=== PATIENT | male | born 1960 | race Caucasian/White ===

== ENCOUNTER 2018-01-27 05:05 | Inpatient (IN) ==
[2018-01-21 14:18] LABS: Blood Urea Nitrogen 15 mg/dl (6-20)
[2018-01-21 14:39] LABS: Basophils # (Auto) 0.1 K/mcL (0.0-0.3); Basophils % (Auto) 0.8 % (0.0-2.0); Eosinophils # (Auto) 0.2 K/mcL (0.0-0.7); Granulocytes % (Auto) 49.6 % (38.0-78.0); Lymphocytes % (Auto) 36.9 % (15.5-49.0); Mean Cell Volume 88.7 fL (80.0-100.0); Monocytes # (Auto) 0.8 K/mcL (0.1-0.9); Monocytes % (Auto) 9.7 % (1.0-12.0); Platelet Count 277 K/mcL (140-440); Red Cell Distribution Width 11.9 % (11.5-14.5)
[2018-01-21 15:14] LABS: Appearance,Urine CLEAR; Bilirubin,Urine NEG (NEG); Color,Urine YELLOW; Glucose,Urine (UA) NEGATIVE (NEG); Leukocyte Esterase,Urine NEG /uL (NEG); Protein,Urine NEG (NEG); Specific Gravity,Urine 1.011 (1.000-1.035); Urine Blood NEG mg/dL (<0.03); Urobilinogen,Urine NEG (NEG)
[~2018-01-27 05:05] MED LIST: CELECOXIB 200 MG CAPSULE PO SCH; PREGABALIN 75 MG CAPSULE PO SCH; ceFAZolin 1 GM VIAL IV SCH; oxyCODONE 10 MG TAB.ER.12H PO SCH
[2018-01-27] MEDS ORDERED: ePHEDrine 50 MG/ML AMPUL IV ONE (07:45)
[2018-01-27] MEDS ORDERED: ONDANSETRON 4 MG/2 ML VIAL IV ONE (07:45)
[2018-01-27] MEDS ORDERED: fentaNYL 250 MCG/5 ML VIAL IV ONE (07:45)
[2018-01-27] MEDS ORDERED: LIDOCAINE HCL/PF 100 MG/5 ML SYRINGE IV ONE (07:45)
[2018-01-27] MEDS ORDERED: DEXAMETHASONE 10 MG/ML VIAL IV ONE (07:45)
[2018-01-27] MEDS ORDERED: TRANEXAMIC ACID 1,000 MG/10 ML VIAL IV ONE ×2 (07:45→09:33)
[2018-01-27] MEDS ORDERED: MIDAZOLAM 5 MG/5 ML VIAL IV ONE (07:45)
[2018-01-27] MEDS ORDERED: SUCCINYLCHOLINE 20 MG/ML ML IV ONE (07:45)
[2018-01-27] MEDS ORDERED: PROPOFOL 200 MG/20 ML VIAL IV ONE (07:45)
[2018-01-27] MEDS ORDERED: LACTATED RINGERS 250 ML IV PRN (09:07)
[2018-01-27] MEDS ORDERED: ONDANSETRON 4 MG/2 ML VIAL IV PRN ×2 (09:07→09:33)
[2018-01-27] MEDS ORDERED: NALOXONE HCL 0.4 MG/ML VIAL IV PRN (09:07)
[2018-01-27] MEDS ORDERED: diphenhydrAMINE 50 MG/ML VIAL IV PRN (09:07)
[2018-01-27] MEDS ORDERED: IPRATROPIUM/ALBUTEROL 3 ML AMPUL.NEB NEB PRN (09:07)
[2018-01-27] MEDS ORDERED: FLUMAZENIL 0.1 MG/ML ML IV PRN (09:07)
[2018-01-27] MEDS ORDERED: ACETAMINOPHEN 1,000 MG/100 ML BOTTLE IV ONE (09:07)
[2018-01-27] MEDS ORDERED: BENZOCAINE/MENTHOL 1 LOZENGE PO PRN ×2 (09:07→09:33)
[2018-01-27] MEDS ORDERED: KETOROLAC 15 MG/ML VIAL IV PRN (09:07)
[2018-01-27] MEDS ORDERED: MEPERIDINE 25 MG/ML SYRINGE IV PRN (09:07)
[2018-01-27] MEDS ORDERED: PROMETHAZINE 25 MG/ML VIAL IV PRN (09:07)
[2018-01-27] MEDS ORDERED: LACTATED RINGERS 1,000 ML IV SCH (09:15)
[2018-01-27] MEDS ORDERED: DEXTROSE 31 GM ORAL.SUSP PO PRN (09:33)
[2018-01-27] MEDS ORDERED: MAGNESIUM HYDROXIDE 30 ML ORAL.SUSP PO PRN (09:33)
[2018-01-27] MEDS ORDERED: BISACODYL 10 MG SUPP.RECT PR PRN (09:33)
[2018-01-27] MEDS ORDERED: DEXTROSE 50% 50 ML VIAL IV PRN (09:33)
[2018-01-27] MEDS ORDERED: FLEETS ADULT ENEMA PR PRN (09:33)
[2018-01-27] MEDS ORDERED: POLYETHYLENE GLYCOL 3350 17 GM PACKET PO PRN (09:33)
--- NOTE | 2018-01-27 09:33 | Brief Operative Note ---
Date of procedure: 01/27/18 Pre-op diagnosis: Irreparable chronic massive RTC with arthrosis Post-op diagnosis: same Procedure: Right reverse total shoulder arthroplasty Grafts/Implants: Yes (Biomet 15 mini humeral stem, std baseplate/poly, 36 +3 offset glenosphere) Anesthesia: GETA Findings: absent RTC with arthrosis Complications: none Surgeon: Colton Rajput Chronic Disease Manager: Sumeet Garcia Estimated blood loss (cc): 150 Specimens Removed/Pathology: none sent Condition: stable Disposition: PACU
[2018-01-27] MEDS ORDERED: ALBUTEROL SULFATE 1 PUFF INHALER INH PRN (09:37)
[2018-01-27] MEDS ORDERED: BUPIVACAINE W/EPI 0.5% 50 ML VIAL IJ ONE (09:53)
[2018-01-27] MEDS: fentaNYL 100 MCG/2 ML VIAL IV PRN ×3 (10:25→10:32)
--- NOTE | 2018-01-27 10:29 | XRay Report ---
CLINICAL INFORMATION: Reason for Exam:Post-OP Total Shoulder COMPARISON: None. FINDINGS: Total shoulder prostheses is anatomically aligned. No osseous abnormality. Soft tissue swelling seen as expected IMPRESSION: Negative Interpreted and Authenticated by: Ernesto Medina 01/27/18
[2018-01-27] MEDS: HYDROmorphone 2 MG/ML VIAL IV PRN (10:53)
[2018-01-27] MEDS: INSULIN LISPRO 1 UNIT/0.01 ML UNIT SQ SCH ×5 (11:58→20:55)
[2018-01-27] MEDS: 0.9 % SODIUM CHLORIDE 1,000 ML IV SCH ×2 (11:59→20:55)
[2018-01-27] MEDS: HYDROcodone/APAP 10/325MG TABLET PO PRN ×3 (13:15→23:07)
[2018-01-27] MEDS: 0.9 % SODIUM CHLORIDE 10 ML SYRINGE IV SCH ×2 (13:53→20:56)
[2018-01-27] MEDS: ceFAZolin 1 GM VIAL IV SCH ×2 (14:43→23:07)
[2018-01-27] MEDS: metFORMIN 500 MG TABLET PO SCH (17:30)
[2018-01-27] MEDS: DOCUSATE SODIUM 100 MG CAPSULE PO SCH (20:55)
[2018-01-27] MEDS ORDERED: SENNOSIDES 1 TABLET PO SCH (21:00)
[2018-01-27] MEDS ORDERED: INSULIN GLARGINE, HUMAN 1 UNIT/0.01 ML SQ SCH (21:00)
[2018-01-28] MEDS: 0.9 % SODIUM CHLORIDE 1,000 ML IV SCH (04:55)
[2018-01-28] MEDS: 0.9 % SODIUM CHLORIDE 10 ML SYRINGE IV SCH (05:02)
[2018-01-28] MEDS: HYDROcodone/APAP 10/325MG TABLET PO PRN ×2 (05:05→10:03)
[2018-01-28] MEDS: HYDROmorphone 2 MG/ML VIAL IV PRN (06:05)
--- NOTE | 2018-01-28 07:38 | Discharge Summary ---
Providers - Providers Patient information: Note initiated : 01/28/18 at 7:36 am Service Date, if different from initiated Date: [] Patient: Robson Landaverde 57 y/o M admitted on 01/27/18 for Right Reverse Ttoal Shoulder Arthroplasty. Chief Complaint: [] Discharge date: 01/28/18 Hospitalization Hospital course: Pt was admitted for a R Reverse Total Shoulder Arthroplasty. He had suffered from R shoulder pain and failed rotator cuff repair and elected to proceed for improved function and pain releif. He was admitted on the day of the procedure; he was transferred to the floor for IV pain meds, IV abx, and PT. He spent one night on the floor prior to discharge. Will f/u in 10-14 days. Discharge diagnosis: R shoulder rotator cuff arthropathy Exam - Exam Clean and dry: No (mild bloody drainage) Weight bearing status: none Ortho Discharge - TSA - Patient Instructions Diet: Regular Diet Activity: non weight bearing Total Shoulder Protocol: Leave immobilizer in place except for bathing and ROM. Abduction pillow. Continue to wear sling until seen by physician. Codman Pendulum : These exercises use momentum produced by your body to move your shoulder joint. Bend your knees and shift your weight to your front leg, then back, allowing your arm to swing in the same directions. Using the same technique, alternately shift your weight between your right and left legs, allowing your arm to swing from side to side. These exercises are also performed in counterclockwise and clockwise circular motions. Typically these exercises are performed several times per day, for a set number repetitions or minutes, such as 20 times in a row or 5 minutes at a time. Dressing Care: May shower in 2 days - Follow Up Plan Disposition: Home, Self-Care Prognosis: Good Rehab Potential: Good Overall status at discharge: patient is progressing back to baseline - Orders For Discharge Prescriptions: HYDROcodone/APAP 10/325MG [[place] 10-325Mg] 1 - 2 tab PO Q4HP PRN #80 tab PRN Reason: Pain Level 3-6 Pending Studies Resuscitation Status Full Code Diet Consistent Carbohydrate Diet Start ThuJan 27 935 Hydrocodone Bitart/Acetaminophen ([place] 10/325mg) 0 tab PO Q4HP PRN PRN Reason: PAIN LEVEL 3-6 Last Admin: 01/28/18 05:05 Dose: 2 tab Admin: 01/27/18 23:07 Dose: 2 tab Admin: 01/27/18 18:53 Dose: 2 tab Admin: 01/27/18 13:15 Dose: 2 tab Diagnostic Test (Pha) (Accu-Chek) 1 each FS ACHS [facility] Last Admin: 01/27/18 20:41 Dose: 1 each Admin: 01/27/18 17:29 Dose: 1 each Admin: 01/27/18 11:59 Dose: 1 each Docusate Sodium (Colace) 100 mg PO BID [facility] Last Admin: 01/27/18 20:55 Dose: 100 mg Hydromorphone HCl (Dilaudid) 0 mg IV Q2HP PRN PRN Reason: PAIN LEVEL > 6 Last Admin: 01/28/18 06:05 Dose: 0.5 mg Admin: 01/27/18 10:53 Dose: 1 mg Sodium Chloride (Sodium Chloride 0.9%) 1,000 mls @ 100 mls/hr IV .Q10H [facility] Last Admin: 01/28/18 04:55 Dose: Infusion: 01/28/18 01:40 Dose: 0 mls/hr Admin: 01/27/18 20:55 Dose: Not Given Admin: 01/27/18 11:59 Dose: 100 mls/hr Insulin Glargine (Lantus) 100 unit SQ HS [facility] Last Admin: 01/27/18 20:56 Dose: 100 unit Insulin Human Lispro (Humalog) 0 unit SQ [facility] PRN Reason: Protocol Last Admin: 01/27/18 20:55 Dose: 8 unit Admin: 01/27/18 17:30 Dose: 12 unit Admin: 01/27/18 11:58 Dose: 8 unit Insulin Human Lispro (Humalog) 30 unit SQ AC [facility] Last Admin: 01/27/18 17:30 Dose: 30 unit Admin: 01/27/18 11:58 Dose: 30 unit Metformin HCl (Glucophage) 1,000 mg PO BIDCC [facility] Last Admin: 01/27/18 17:30 Dose: 1,000 mg Senna (Senokot) 2 tab PO HS [facility] Last Admin: 01/27/18 20:56 Dose: 2 tab Sodium Chloride (Saline Flush) 10 ml IV Q8 [facility] Last Admin: 01/28/18 05:02 Dose: 10 ml Admin: 01/27/18 20:56 Dose: Not Given Admin: 01/27/18 13:53 Dose: Not Given Shift Summary 01/28/18 04:20 Shift Summary by Anabelle Ramos&Yaima4. VSS. 18 gauge to left hand is SL. Dressing in place to surgical site to right shoulder has shadow drainage; shoulder immobilizer in place. Medicated with 2 tablets 10/325mg [place] x2 for pain. Up with SBA. Ambulated in the hallway. BG at HS was 273; received 8 units Humalog per s/s and scheduled Lantus 100 units. Patient stated that he would like to d/c home today. Initialized on 01/28/18 04:20 - END OF NOTE
[2018-01-28] MEDS: INSULIN LISPRO 1 UNIT/0.01 ML UNIT SQ SCH ×2 (08:03)
[2018-01-28] MEDS: DOCUSATE SODIUM 100 MG CAPSULE PO SCH (08:55)
[2018-01-28] MEDS: metFORMIN 500 MG TABLET PO SCH (08:55)
[2018-01-28] MEDS ORDERED: ASPIRIN 81 MG TAB.CHEW PO SCH (09:00)
[2018-01-28] MEDS ORDERED: MAGNESIUM OXIDE 400 MG TABLET PO SCH (09:00)
[2018-01-28] MEDS ORDERED: LISINOPRIL 5 MG TABLET PO SCH (09:00)
--- NOTE | 2018-02-08 10:14 | Operative Note ---
DATE OF OPERATION: 01/27/2018 PREOPERATIVE DIAGNOSIS: Right irreparable chronic massive rotator cuff tear with arthrosis. POSTOPERATIVE DIAGNOSIS: Right irreparable chronic massive rotator cuff tear with arthrosis. PROCEDURE PERFORMED: Right reverse total shoulder arthroplasty using a Biomet size 15 mini humeral stem, a standard baseplate and polyethylene insert with a 36, +3 offset glenosphere. SURGEON: Colton Rajput M.D. NURSE DISCHARGE: Maury Garcia PA-C. ANESTHESIA: General. DRAINS: None. SPECIMENS: None. COMPLICATIONS: None. BLOOD LOSS: 150 mL. POSTOPERATIVE CONDITION: Stable. INDICATIONS FOR SURGERY: This is a 57-year-old male who has had longstanding right shoulder pain and weakness with history of previous rotator cuff repair. MRI showed massive rotator cuff tear that also had substantial atrophy. FINDINGS AT SURGERY: Absent rotator cuff. PROCEDURE IN DETAIL: The patient had been seen preoperatively, and informed consent had been obtained after discussion of risks and benefits of surgery. Risks including, but not limited to, bleeding; infection; injury to nerves, blood vessels, and other surrounding structures; anesthetic risks; incomplete or no resolution of symptoms; stiffness; weakness; pain; dislocation; fracture; possibility of needing revision surgery. He understood these risks and wished to proceed. Correct operative site was marked and patient was taken to the operating room. General anesthesia was induced. He was carefully positioned in beach chair position and pressure points carefully padded. Right shoulder and upper extremity were then carefully prepped and draped in normal sterile fashion, and a time-out was performed verifying patient name, operative site, and plan. Ioban was used to cover all skin surfaces and a standard deltopectoral incision was made with scalpel through skin and subcutaneous tissue. Hemostasis was obtained with Bovie cautery. Irrisept was irrigated and then blunt dissection taken down onto the cephalic vein, and this was dissected lateral to the deltoid. The subdeltoid space was developed bluntly with finger dissection and a Be retractor placed. We went ahead and detached what remained of subscapularis and dislocated the humeral head out anteriorly. A hole was made proximally and then we began sequentially reaming the humeral shaft with hand reamers up to a 15. We then placed our cutting jig with 30 degrees of retroversion and then made our humeral head cut. We then broached up to a size 15 mini stem and then placed a head protector. We then subluxed the humerus posteriorly and began exposing the glenoid, circumferentially removing labrum and releasing capsule. We then drilled our central guide pin. We then reamed for the baseplate until we had reached bone circumferentially. This was with a 10 degree cephalad tilt. We then drilled our central hole and checked the depth gauge and then opened a mini baseplate. The joint was irrigated with Irrisept, after a minute pulse lavage copiously with irrigation, and then impacted the baseplate. We then placed a central screw and got excellent compression. We then drilled and placed our peripheral locking screws. Once this was completed, we then placed a trial head. We then re-exposed the humerus and trialed with a standard baseplate. Shoulder just barely reduced and had good tension, so we redislocated and then removed the trial head component. A +3 offset glenosphere was opened and then impacted. We then irrigated the humeral canal with Irrisept, after a minute pulse lavage, and then the 15 mini stem was impacted. The baseplate, polyethylene insert construct was put together on the back table and then this was impacted on to the stem. The stem was reduced with excellent tension. Range of motion was checked which was full. We then did another Irrisept irrigation, after a minute pulse lavage, and then a #1 Vicryl stitch was used to close the deltopectoral interval. Final Irrisept irrigation done, final pulse lavage after a minute, and then 2-0 Monocryl for subcutaneous and misbah for skin. Xeroform and sterile dressing were applied. Arm was placed in a Donjoy abductor immobilizer and patient was awakened, extubated, and transferred to recovery in stable condition. WON:aminah Job ID: [id number] Doc ID: [id number] Colton Rajput MD
[2018-02-10] MEDS ORDERED: ERGOCALCIFEROL (VITAMIN D2) 50,000 UNIT CAPSULE PO SCH (09:00)
== END 2018-01-28 10:32 | disposition home or self-care (01) | DRG 483 ==
LOC: MEDSUR 05:05
PROVIDERS: ADMIT Orthopaedic Surgery; ATTEND Orthopaedic Surgery

== ENCOUNTER 2020-07-11 14:11 | Inpatient (IN) ==
[2020-07-11] MEDS ORDERED: IOPAMIDOL 100 ML BOTTLE IV ONE (14:12)
[2020-07-11] MEDS ORDERED: 0.9 % SODIUM CHLORIDE 1,000 ML IV ONE (14:26)
[2020-07-11] MEDS ORDERED: VANCOMYCIN 2,000 MG in 0.9 % SODIUM CHLORIDE 500 ML IV ONE (14:32)
--- NOTE | 2020-07-11 14:48 | Emergency Department Note ---
HPI General Chief complaint: Skin/Abscess/Foreign Body Stated complaint: Left foot wound Time Seen by Provider: 07/11/20 14:18 Source: patient and family Mode of arrival: wheelchair Limitations: no limitations History of Present Illness HPI Narrative: Narrative: 59-year old patient presenting to the emergency department with a chief complaint of injury to the left foot. Patient reporting mechanism of injury was stepped on a nail. This issue occurred since 5 to 6 days ago. Exacerbating features are attempting to move it, pressure. Ameliorating factors are immobilization, pain medications. Patient denying symptoms of pain out of proportion to the extremity, pallor to the extremity, other color change, or paresthesias in the extremity. Patient denies injury to other parts of the body at the same time. Patient with known diabetes has been in the past couple of days evaluated for cellulitis and foot infection presenting for further recheck. Patient has been getting IV antibiotics as well as Keflex p.o. Related Data Home Medications Medication Instructions Recorded Confirmed insulin aspart U-100 30 unit SQ TID 01/21/18 07/11/20 insulin detemir U-100 100 unit/mL 50 unit SUB-Q HS ml 08/03/19 07/11/20 subcutaneous solution metformin 500 mg tablet 1,000 mg PO BIDCC 04/05/20 07/11/20 Previous Rx's Medication Instructions Recorded cephalexin [Keflex] 500 mg PO QID #40 cap 07/09/20 Allergies Allergy/AdvReac Type Severity Reaction Status Date / Time No Known Drug Allergies Allergy Verified 07/11/20 14:11 Review of Systems ROS ROS Narrative: Narrative: All systems ED: reviewed and negative except as stated. COUNT INCLUDES THE [facility] Narrative Patient History Narrative: Narrative: Medical/Surgical/Family History All Active Problems (Updated 07/11/20 @ 16:35 by Emery Coates MD) Wound infection (Acute) Penetrating foot wound (Acute) Infected abrasion of left foot (Acute) Cellulitis (Acute) Proteinuria of undiagnosed cause (Chronic) Chronic hyponatremia (Chronic) Type 2 diabetes mellitus with foot ulcer, with long-term current use of insulin (Chronic) Acute prerenal azotemia (Acute) Exposure to 2019 novel coronavirus (Chronic) Low blood pressure (Chronic) Ulcer of foot due to type 2 diabetes mellitus (Chronic) Tinea pedis, right (Chronic) Vitamin D deficiency (Chronic) Astigmatism (Chronic) Anterior cruciate ligament tear (Chronic) Morbid obesity (Chronic) Rotator cuff tear, right (Chronic) Impotence (Chronic) Osteoarthritis of left knee (Chronic) Hyperlipidemia (Chronic) Hallux valgus (Chronic) GERD (gastroesophageal reflux disease) (Chronic) Hemorrhoids (Chronic) Diabetes mellitus, type II (Chronic) Hypertension (Chronic) Acute renal failure (Chronic) Right hallux osteomyelitis (Chronic) Sepsis due to cellulitis (Chronic) Dislocation of shoulder region (Chronic) Chronic diabetic ulcer of right foot determined by examination (Chronic) Hypertension, essential (Chronic) Obesity (BMI 30.0-34.9) (Chronic) Diabetes mellitus type 2, uncontrolled (Chronic) Medical History (Updated 07/11/20 @ 16:35 by Emery Coates MD) Acute prerenal azotemia (Acute) Polyfactorial with low BP/dehydration, NSAID and ACEi use Improved by stopping Lisinopril and reduced NSAID use Low Grade proteinuria persists Acute renal failure (Chronic) Anterior cruciate ligament tear (Chronic) Astigmatism (Chronic) Chronic diabetic ulcer of right foot determined by examination (Chronic) Diabetes mellitus type 2, uncontrolled (Chronic) Diabetes mellitus, type II (Chronic) Dislocation of shoulder region (Resolved) Dislocation of shoulder region (Chronic) Exposure to 2019 novel coronavirus (Chronic) GERD (gastroesophageal reflux disease) (Chronic) Hallux valgus (Chronic) Hemorrhoids (Chronic) Hyperlipidemia (Chronic) Hypertension (Chronic) Hypertension, essential (Chronic) Impotence (Chronic) Low blood pressure (Chronic) Morbid obesity (Chronic) Obesity (BMI 30.0-34.9) (Chronic) Osteoarthritis of left knee (Chronic) Proteinuria of undiagnosed cause (Chronic) The diagnostic possibilities are early diabetic nephropathy however there is no retinopathy on my exam. Could be tubular proteinuria from nonsteroidals, mid he does seem to be able to generate a concentrated urine with a specific gravity of 1.030 as well as a dilute urine of 1.005 which would suggest intact tubular function. Finally could just be something is innocent as orthostatic proteinuria. I would like to stop the thiazide, the GASPER inhibitor, and minimize his Naprosyn use and work this up in a month or so if it has not abated on its own Right hallux osteomyelitis (Chronic) Rotator cuff tear, right (Chronic) Sepsis due to cellulitis (Chronic) FAILED out patient treatment DFU Lentz 4, Right FIRST toe with POLYMICROBIAL, soft tissue necroses and suspected anaerobic infection., WITHOUT signs of SIRS . Will treat aggressively with local wound care and HBOT along with management of comorbid conditions. PLAN DISCUSSED WITH DR. SHAH Infectious Disease Specialist. Further systemic antibiotcs at the behest of ID specialist as the condition evolves. Shoulder dislocation, recurrent (Resolved) Tinea pedis, right (Chronic) Type 2 diabetes mellitus with foot ulcer, with long-term current use of insulin (Chronic) No longer on metformin but I see no reason not to restart. Low grade proteinuria may not be due to early DM but may reflect effects of chronic NSAIDS and non-glomerular protein leak Stop lisinopril for a month and check for glomerular and tubular protein leak. Ulcer of foot due to type 2 diabetes mellitus (Chronic) Vitamin D deficiency (Chronic) Surgical History History of repair of left rotator cuff (Chronic) History of right shoulder replacement (Chronic) Had to be repeated 9 days later; Dr. Desir Family History Mother Diabetes mellitus, type 2 Social History Smoking Status: Former smoker Alcohol Intake Frequency: a few times a week Substance Use: does not use Exam Narrative Narrative: Narrative: General: Alert, interactive, appropriate Head: Atraumatic, normocephalic Eyes: Extraocular movements intact, sclera anicteric, no conjunctival injection Ears: Pinnae normal, no discharge Mouth: Oral mucosa moist, no acute swelling or evidence of infection Nares: No nasal discharge, patent bilaterally Neck: Trachea midline, full range of motion Chest: Symmetrical chest wall rise, breathing normally; nonlabored respirations Cardiovascular: Patient with excellent perfusion to the extremities; without tachycardia/bradycardia Extremities: Full range of motion in other joints, other extremities were warm well perfused, patient with erythema to just above the ankle at this time. Patient with induration diffusely around the foot. Patient open wound to the dorsum of the foot as well as the medial aspect of the great toe at the MCP Neuro: Alert, oriented x3, cranial nerves II through XII grossly intact, patient without lateralizing findings such as weakness, or abnormal reflexes Psychiatric: Normal affect, normal mood General Limitations: no limitations Course Vital Signs Vital signs: Vital Signs Temperature 98.7 F 07/11/20 14:11 Pulse Rate 98 H 07/11/20 14:11 Respiratory Rate 16 07/11/20 14:11 Blood Pressure 144/87 07/11/20 14:11 Pulse Oximetry (%) 97 07/11/20 14:11 Temperature 98.7 F 07/11/20 14:11 Pulse Rate 92 H 07/11/20 16:25 Respiratory Rate 16 07/11/20 14:11 Blood Pressure 179/92 07/11/20 16:25 Pulse Oximetry (%) 96 07/11/20 16:25 MDM MDM Narrative Medical decision making narrative: Narrative: This patient presenting with chief complaint of failed outpatient antibiotics for open wound/cellulitis in a diabetic. Patient has had several days of oral antibiotics as well as IV antibiotics and evaluation as an outpatient by wound management. Patient was evaluated with combination of history/physical exam/radiologic evaluation. Patient is without evidence of acute neurovascular compromise of the extremity. Patient was treated with IV fluids, antibiotics vancomycin 2 g and Zosyn were provided, CBC blood cultures as well as noncontrast CT scan of his lower extremity were obtained. In my medical opinion at this time patient most reasonably should be admitted to the hospital for failed outpatient cellulitis with open wounds. Discussed the case with Dr. Zapien and the consensus medical opinion is to admit. Also discussed case with Dr. Oliveros and he will be evaluating the patient in the hospital with plans for surgery tomorrow. Lab Data Result diagrams: 07/11/20 14:45 07/11/20 14:45 Labs: Lab Results 07/11/20 07/11/20 07/11/20 Range/Units 14:45 14:45 14:57 WBC 16.2 H (4.50-11.00) K/mcL RBC 4.26 L (4.63-6.08) M/mcL Hgb 13.6 L (13.7-17.5) g/dL Hct 39.4 L (40.1-51.0) % MCV 92.5 (80.0-100.0) fL MCH 31.9 (26.0-34.0) pg MCHC 34.5 (31.0-36.0) g/dL RDW 12.7 (11.5-14.5) % Plt Count 286 (140-440) K/mcL MPV 10.0 (7.4-10.4) fL Gran % 75.2 (38.0-78.0) % Lymph % (Auto) 13.6 L (15.5-49.0) % [place] % (Auto) 9.7 (1.0-12.0) % Eos % (Auto) 1.0 (0.0-7.0) % Baso % (Auto) 0.5 (0.0-2.0) % Gran # 12.18 H (1.80-8.00) K/mcL Lymph # (Auto) 2.20 (1.50-4.80) K/mcL [place] # (Auto) 1.57 H (0.10-0.90) K/mcL Eos # (Auto) 0.16 (0.00-0.70) K/mcL Baso # (Auto) 0.08 (0.00-0.30) K/mcL VBG Lactic Acid 1.1 (0.5-2.0) mmol/L Sodium 134 (133-145) mmol/L Potassium 3.6 (3.3-5.1) mmol/L Chloride 98 (96-108) mmol/L Carbon Dioxide 23 (22-30) mmol/L Anion Gap 13.0 (8-16) BUN 15 (6-20) mg/dl Creatinine 0.8 (0.7-1.2) mg/dl GFR Calculation 98 Glucose 89 (70-105) mg/dL Calcium 9.3 (8.6-10.4) mg/dl Total Bilirubin 0.3 (0.0-1.0) mg/dL AST 21 (0-37) U/l ALT 26 (0-40) U/l Alkaline Phosphatase 90 (39-117) U/L Total Protein 7.2 (5.9-8.4) gm/dL Albumin 3.2 (3.2-5.2) gm/dL Globulin 4.0 H (2.2-3.7) gm/dL Albumin/Globulin Ratio 0.8 L (1.0-2.3) Discharge Plan Patient/Caregiver Discharge Instructions Pt seen by [employer] DRIVER/PA only: No Clinical Impression: Wound infection, Penetrating foot wound, Diabetes mellitus type 2, uncontrolled Patient Disposition: Xfer As Inpt ([facility]) Follow up with: Ovi Burgos ARNP [Primary Care Provider] - Prescriptions: No Action insulin aspart U-100 100 UNIT/ML solution 30 unit SQ TID RF: 0 insulin detemir U-100 100 unit/mL solution 50 unit SUB-Q HS RF: 0 metformin 500 mg tablet 1,000 mg PO BIDCC RF: 0 cephalexin [Keflex] 500 mg capsule 500 mg PO QID Qty: 40 RF: 0
[2020-07-11 15:36] LABS: Basophils # (Auto) 0.08 K/mcL (0.00-0.30); Basophils % (Auto) 0.5 % (0.0-2.0); Eosinophils # (Auto) 0.16 K/mcL (0.00-0.70); Granulocytes % (Auto) 75.2 % (38.0-78.0); Hematocrit 39.4 % (40.1-51.0); Hemoglobin 13.6 g/dL (13.7-17.5); Lymphocytes % (Auto) 13.6 % (15.5-49.0); Mean Cell Volume 92.5 fL (80.0-100.0); Mean Corpuscular HGB Conc 34.5 g/dL (31.0-36.0); Monocytes # (Auto) 1.57 K/mcL (0.10-0.90); Monocytes % (Auto) 9.7 % (1.0-12.0); Platelet Count 286 K/mcL (140-440); RBC 4.26 M/mcL (4.63-6.08); Red Cell Distribution Width 12.7 % (11.5-14.5); WBC 16.2 K/mcL (4.50-11.00)
--- NOTE | 2020-07-11 15:40 | Cat Scan Report ---
History: Left foot wound with cellulitis TECHNIQUE: Following injection of intravenous nonionic contrast the patient was imaged from the lower tibia and fibula to the bottom of the foot. Sagittal and coronal reformats are created. The radiation exposure was limited using dose reduction technology. FINDINGS: There is moderate edema/cellulitis throughout the foot and lower leg. The greatest swelling is located anterior to the distal ends of the metatarsals. There is also focal area of soft tissue thickening inferior to the head of the fifth metatarsal. This measures 9 mm in thickness and 2 x 2 cm in transverse dimension. It is not liquefied and there is no apparent overlying skin ulcer. No abscess is seen in the foot, ankle or lower leg. Bone windows show no evidence of bone erosion or periosteal elevation. There is no fracture or dislocation. Moderate amount of calcified plaque is present in the arteries in the lower leg extending to the toes. IMPRESSION: Moderate cellulitis throughout the foot and lower leg No evidence of abscess or osteomyelitis Interpreted and Authenticated by: Kem Nelson 07/11/20
[2020-07-11] MEDS ORDERED: fentaNYL 100 MCG/2 ML VIAL IV PRN (15:51)
[2020-07-11 15:53] LABS: ALT/SGPT 26 U/l (0-40); AST/SGOT 21 U/l (0-37); Albumin 3.2 gm/dL (3.2-5.2); Albumin/Globulin Ratio 0.8 (1.0-2.3); Alkaline Phosphatase 90 U/L (39-117); Bilirubin,Total 0.3 mg/dL (0.0-1.0); Blood Urea Nitrogen 15 mg/dl (6-20); Calcium 9.3 mg/dl (8.6-10.4); Carbon Dioxide 23 mmol/L (22-30); Chloride 98 mmol/L (96-108); Glomerular Filtration Rate 98; Glucose 89 mg/dL (70-105)
[2020-07-11] MEDS ORDERED: PIPERACILLIN SODIUM/TAZOBACTAM 3.375 GM in DEXTROSE 5% IN WATER 50 ML IV ONE (16:17)
--- NOTE | 2020-07-11 16:56 | Internal Med History&Physical ---
HPI History of Present Illness Patient information: Note initiated : 07/11/20 at 4:55 pm Service Date, if different from initiated Date: [] Patient: Robson Landaverde a 59 y/o M admitted on for Lt Foot Wound. Chief Complaint: [] History of present illness: Mr. Landaverde is a 59 year old M Zentz to the ED with a red swollen oozing foot left. Patient states last he stepped on a nail which did not penetrate his skin but scraped his foot up on the medial side of his left foot. Since that time is foot has become red swollen and started oozing purulent fluid. Start have skin breakdown as well. Also becoming uncomfortable. He did see ED several days ago was put on oral antibiotics and to get some IV antibiotics initially. However today when he went to wound care he was sent to the ED as it did not appear to be improving. He denies fever chills. Has history of diabetes. Has a history of hypertension but his lisinopril was stopped few months ago because he had some low blood pressures with worsening creatinine. His blood pressure now off any medication is between 114 and 190 systolic. Review of Systems: Pertinent positives as above. Denies headache/fever/chills/nausea/vomiting/chest or abdominal pain/cough/dyspnea/diarrhea. Many 10 point review of system reviewed negative. [facility] Medical History (Updated 07/11/20 @ 16:35 by Emery Coates MD) Acute prerenal azotemia (Acute) Polyfactorial with low BP/dehydration, NSAID and ACEi use Improved by stopping Lisinopril and reduced NSAID use Low Grade proteinuria persists Acute renal failure (Chronic) Anterior cruciate ligament tear (Chronic) Astigmatism (Chronic) Chronic diabetic ulcer of right foot determined by examination (Chronic) Diabetes mellitus type 2, uncontrolled (Chronic) Diabetes mellitus, type II (Chronic) Dislocation of shoulder region (Resolved) Dislocation of shoulder region (Chronic) Exposure to 2019 novel coronavirus (Chronic) GERD (gastroesophageal reflux disease) (Chronic) Hallux valgus (Chronic) Hemorrhoids (Chronic) Hyperlipidemia (Chronic) Hypertension (Chronic) Hypertension, essential (Chronic) Impotence (Chronic) Low blood pressure (Chronic) Morbid obesity (Chronic) Obesity (BMI 30.0-34.9) (Chronic) Osteoarthritis of left knee (Chronic) Proteinuria of undiagnosed cause (Chronic) The diagnostic possibilities are early diabetic nephropathy however there is no retinopathy on my exam. Could be tubular proteinuria from nonsteroidals, mid he does seem to be able to generate a concentrated urine with a specific gravity of 1.030 as well as a dilute urine of 1.005 which would suggest intact tubular function. Finally could just be something is innocent as orthostatic proteinuria. I would like to stop the thiazide, the GASPER inhibitor, and minimize his Naprosyn use and work this up in a month or so if it has not abated on its own Right hallux osteomyelitis (Chronic) Rotator cuff tear, right (Chronic) Sepsis due to cellulitis (Chronic) FAILED out patient treatment DFU Lentz 4, Right FIRST toe with POLYMICROBIAL, soft tissue necroses and suspected anaerobic infection., WITHOUT signs of SIRS . Will treat aggressively with local wound care and HBOT along with management of comorbid conditions. PLAN DISCUSSED WITH DR. SHAH Infectious Disease Specialist. Further systemic antibiotcs at the behest of ID specialist as the condition evolves. Shoulder dislocation, recurrent (Resolved) Tinea pedis, right (Chronic) Type 2 diabetes mellitus with foot ulcer, with long-term current use of insulin (Chronic) No longer on metformin but I see no reason not to restart. Low grade proteinuria may not be due to early DM but may reflect effects of chronic NSAIDS and non-glomerular protein leak Stop lisinopril for a month and check for glomerular and tubular protein leak. Ulcer of foot due to type 2 diabetes mellitus (Chronic) Vitamin D deficiency (Chronic) Surgical History History of repair of left rotator cuff (Chronic) History of right shoulder replacement (Chronic) Had to be repeated 9 days later; Dr. Desir Family History Mother Diabetes mellitus, type 2 Social History (Updated 04/05/20 @ 13:15 by Vahe Vera MD) smoking status: Former smoker alcohol intake frequency: a few times a week substance use type: does not use MEDS/ALLERGIES Home Medications and Allergies Home Medications Medication Instructions Recorded Confirmed Type insulin aspart U-100 30 unit SQ TID 01/21/18 07/11/20 History insulin detemir U-100 100 unit/mL 50 unit SUB-Q HS ml 08/03/19 07/11/20 History subcutaneous solution metformin 500 mg tablet 1,000 mg PO BIDCC 04/05/20 07/11/20 History cephalexin [Keflex] 500 mg PO QID #40 cap 07/09/20 07/11/20 Rx Allergies Allergy/AdvReac Type Severity Reaction Status Date / Time No Known Drug Allergies Allergy Verified 07/11/20 14:11 EXAM Constitutional Vitals: Temp Pulse Resp BP Pulse Ox 98.7 F 92 H 16 179/92 96 07/11/20 14:11 07/11/20 16:25 07/11/20 14:11 07/11/20 16:25 07/11/20 16:25 Exam: General: Alert, Awake, No acute Distress, obese Eyes/N/T: EOMI, PERRL, MMM Head/Neck: neck supple, normocephalic atraumatic CV: RRR, No murmurs, normal s1/s2 Pulm: Clear b/l, no wheezing/rhonchi/rales Abd: soft, nontender, +BS x4 Ext: no clubbing/cyanosis/edema with exception of left foot. Left forefoot with erythema and edema and sloughing of skin medial aspect and dorsal aspect. Old wound on the medial aspect at the base of the great toe is open and draining purulent fluid. Neuro: Alert, no focal deficits, moves all extremities, CN 2-12 grossly intact, symmetrical strength b/l upper/lower, sensations b/l decreased and chronic skin: warm/dry DATA Data Completed and Pending Labs on day of discharge: Labs from last 24 hours 07/11/20 07/11/20 07/11/20 14:57 14:45 14:45 WBC 16.2 H RBC 4.26 L Hgb 13.6 L Hct 39.4 L MCV 92.5 MCH 31.9 MCHC 34.5 RDW 12.7 Plt Count 286 MPV 10.0 Gran % 75.2 Lymph % (Auto) 13.6 L [place] % (Auto) 9.7 Eos % (Auto) 1.0 Baso % (Auto) 0.5 Gran # 12.18 H Lymph # (Auto) 2.20 [place] # (Auto) 1.57 H Eos # (Auto) 0.16 Baso # (Auto) 0.08 VBG Lactic Acid 1.1 Sodium 134 Potassium 3.6 Chloride 98 Carbon Dioxide 23 Anion Gap 13.0 BUN 15 Creatinine 0.8 GFR Calculation 98 Glucose 89 Calcium 9.3 Total Bilirubin 0.3 AST 21 ALT 26 Alkaline Phosphatase 90 Total Protein 7.2 Albumin 3.2 Globulin 4.0 H Albumin/Globulin Ratio 0.8 L A/P Narrative A/P Narrative: A: *LLE/foot cellulitis: failed outpt therapy -previous cx with MSSA and Strep pygenes -CT with foot cellulitis and lower leg cellulitis, no abscess noted *DM: *h/o HTN: Was taken off lisinopril several months ago for low blood pressure and elevated creatinine *Obesity: * P: -Vanc/zosyn in ED, will transition to Rocephin/Clinda -Repeat wound and blood cx pending -Dr. Tsang/wound care -a1c/esr/crp -basal and SSI - -ppx: heparin Time Spent With Patient Time: Total time spent is greater than 50% in coordination of care (as documented) at patient's floor/unit and/or counseling patient:
--- NOTE | 2020-07-11 17:53 | XRay Report ---
HISTORY: Preop FINDINGS: The lungs are clear and well expanded. The heart size, pulmonary vasculature, mediastinum, jessie and pleura are normal. Patient has a right shoulder prosthesis. There has been no significant change since 08/31/19. IMPRESSION: Normal exam Interpreted and Authenticated by: Kem Nelson 07/11/20
--- NOTE | 2020-07-11 18:36 | General Surgery Consult Note ---
HPI Data of Consult Primary Care Provider: ALEX [facility] Consult Narrative Patient Information: Note initiated : 07/11/20 at 6:21 pm Service Date, if different from initiated Date: [] Patient: Robson Landaverde 59 y/o M admitted on 07/11/20 for Lt Foot Wound. Chief Complaint: Patient seen in wound care center earlier today for a traumatic wound of LEFT great toe with failed out patient treatment. This is an established wound care center patient, who presented to the clinic with complex SSSI and local sepsis involving LEFT great toe and foot. He had a complex problem involving RIGHT great toe in past. Underwent surgery, prolonged wound care and HBOT. I reviewed his case with STAFFING ACCOUNT MANAGER in wound care, and with Dr. Emery Coates MD ER physician. Patient will need surgical debridement in OR . Further treatment recommendations as his condition evolves. [] cc:: CC: Kingsley Ware [facility] Medical History (Updated 07/11/20 @ 16:35 by Emery Coates MD) Acute prerenal azotemia (Acute) Polyfactorial with low BP/dehydration, NSAID and ACEi use Improved by stopping Lisinopril and reduced NSAID use Low Grade proteinuria persists Acute renal failure (Chronic) Anterior cruciate ligament tear (Chronic) Astigmatism (Chronic) Chronic diabetic ulcer of right foot determined by examination (Chronic) Diabetes mellitus type 2, uncontrolled (Chronic) Diabetes mellitus, type II (Chronic) Dislocation of shoulder region (Resolved) Dislocation of shoulder region (Chronic) Exposure to 2019 novel coronavirus (Chronic) GERD (gastroesophageal reflux disease) (Chronic) Hallux valgus (Chronic) Hemorrhoids (Chronic) Hyperlipidemia (Chronic) Hypertension (Chronic) Hypertension, essential (Chronic) Impotence (Chronic) Low blood pressure (Chronic) Morbid obesity (Chronic) Obesity (BMI 30.0-34.9) (Chronic) Osteoarthritis of left knee (Chronic) Proteinuria of undiagnosed cause (Chronic) The diagnostic possibilities are early diabetic nephropathy however there is no retinopathy on my exam. Could be tubular proteinuria from nonsteroidals, mid he does seem to be able to generate a concentrated urine with a specific gravity of 1.030 as well as a dilute urine of 1.005 which would suggest intact tubular function. Finally could just be something is innocent as orthostatic proteinuria. I would like to stop the thiazide, the GASPER inhibitor, and minimize his Naprosyn use and work this up in a month or so if it has not abated on its own Right hallux osteomyelitis (Chronic) Rotator cuff tear, right (Chronic) Sepsis due to cellulitis (Chronic) FAILED out patient treatment DFU Lentz 4, Right FIRST toe with POLYMICROBIAL, soft tissue necroses and suspected anaerobic infection., WITHOUT signs of SIRS . Will treat aggressively with local wound care and HBOT along with management of comorbid conditions. PLAN DISCUSSED WITH DR. SHAH Infectious Disease Specialist. Further systemic antibiotcs at the behest of ID specialist as the condition evolves. Shoulder dislocation, recurrent (Resolved) Tinea pedis, right (Chronic) Type 2 diabetes mellitus with foot ulcer, with long-term current use of insulin (Chronic) No longer on metformin but I see no reason not to restart. Low grade proteinuria may not be due to early DM but may reflect effects of chronic NSAIDS and non-glomerular protein leak Stop lisinopril for a month and check for glomerular and tubular protein leak. Ulcer of foot due to type 2 diabetes mellitus (Chronic) Vitamin D deficiency (Chronic) Surgical History History of repair of left rotator cuff (Chronic) History of right shoulder replacement (Chronic) Had to be repeated 9 days later; Dr. Desir Family History Mother Diabetes mellitus, type 2 Social History (Updated 04/05/20 @ 13:15 by Vahe Vera MD) smoking status: Former smoker alcohol intake frequency: a few times a week substance use type: does not use MEDS/ALLERGIES Home Medications and Allergies Home Medications Medication Instructions Recorded Confirmed Type insulin aspart U-100 30 unit SQ TID 01/21/18 07/11/20 History insulin detemir U-100 100 unit/mL 50 unit SUB-Q HS ml 08/03/19 07/11/20 History subcutaneous solution metformin 500 mg tablet 1,000 mg PO BIDCC 04/05/20 07/11/20 History cephalexin [Keflex] 500 mg PO QID #40 cap 07/09/20 07/11/20 Rx Allergies Allergy/AdvReac Type Severity Reaction Status Date / Time No Known Drug Allergies Allergy Verified 07/11/20 14:11 Physical Examination Vital Signs Vital signs: Temp Pulse Resp BP Pulse Ox 98.7 F 93 H 16 164/103 98 07/11/20 14:11 07/11/20 17:52 07/11/20 14:11 07/11/20 17:52 07/11/20 17:52 General physical appearance General physical exam: well developed, well nourished, no distress and no pain Eyes Eye exam: PERRL and normal ocular movement ENT ENT exam: normal pinna, normal nares, normal mucosa and no congestion Head Head exam IM: Present atraumatic, normal inspection and normocephalic Neck Neck exam: no masses, trachea midline and no venous distension Cardiovascular Cardiovascular exam IM: Present normal rate and rhythm Respiratory Respiratory exam: normal expansion and clear to auscultation Abdomen Abdomen: Present soft, non tender and bowel sounds Integumentary Integumentary: Present other (LEFT Great toe and distal foot with gross edema and ruptured blistered skin. Purulence around medial LEFT great toe. ) Neurologic Neurologic: Present other (Diabetes with peirphral neuropathy. ) Musculoskeletal Musculoskeletal: Present normal gait and normal posture Psychiatric Psychiatric: Present oriented to time, oriented to person, oriented to place, speech is normal and memory intact Additional Findings Additional exam: Reviewed CT scans of LEFT foot and leg, EKG and lab results. Results Labs Result diagrams: 07/11/20 14:45 07/11/20 14:45 Labs: Abnormal lab results 07/11/20 07/11/20 Range/Units 14:45 14:45 WBC 16.2 H (4.50-11.00) K/mcL RBC 4.26 L (4.63-6.08) M/mcL Hgb 13.6 L (13.7-17.5) g/dL Hct 39.4 L (40.1-51.0) % Lymph % (Auto) 13.6 L (15.5-49.0) % Gran # 12.18 H (1.80-8.00) K/mcL [place] # (Auto) 1.57 H (0.10-0.90) K/mcL Globulin 4.0 H (2.2-3.7) gm/dL Albumin/Globulin Ratio 0.8 L (1.0-2.3) Diabetes panel 07/11/20 Range/Units 14:45 Sodium 134 (133-145) mmol/L Potassium 3.6 (3.3-5.1) mmol/L Chloride 98 (96-108) mmol/L Carbon Dioxide 23 (22-30) mmol/L BUN 15 (6-20) mg/dl Creatinine 0.8 (0.7-1.2) mg/dl Glucose 89 (70-105) mg/dL Calcium 9.3 (8.6-10.4) mg/dl AST 21 (0-37) U/l ALT 26 (0-40) U/l Alkaline Phosphatase 90 (39-117) U/L Total Protein 7.2 (5.9-8.4) gm/dL Albumin 3.2 (3.2-5.2) gm/dL Calcium panel 07/11/20 Range/Units 14:45 Calcium 9.3 (8.6-10.4) mg/dl Albumin 3.2 (3.2-5.2) gm/dL Pituitary panel 07/11/20 Range/Units 14:45 Sodium 134 (133-145) mmol/L Potassium 3.6 (3.3-5.1) mmol/L Chloride 98 (96-108) mmol/L Carbon Dioxide 23 (22-30) mmol/L BUN 15 (6-20) mg/dl Creatinine 0.8 (0.7-1.2) mg/dl Glucose 89 (70-105) mg/dL Calcium 9.3 (8.6-10.4) mg/dl Adrenal panel 07/11/20 Range/Units 14:45 Sodium 134 (133-145) mmol/L Potassium 3.6 (3.3-5.1) mmol/L Chloride 98 (96-108) mmol/L Carbon Dioxide 23 (22-30) mmol/L BUN 15 (6-20) mg/dl Creatinine 0.8 (0.7-1.2) mg/dl Glucose 89 (70-105) mg/dL Calcium 9.3 (8.6-10.4) mg/dl Total Bilirubin 0.3 (0.0-1.0) mg/dL AST 21 (0-37) U/l ALT 26 (0-40) U/l Alkaline Phosphatase 90 (39-117) U/L Total Protein 7.2 (5.9-8.4) gm/dL Albumin 3.2 (3.2-5.2) gm/dL All other labs normal. A/P Narrative A/P Narrative: Assessment: SEPSIS CSSSI Left great toe DM Peripheral neuropathy Failed out patient treatment. Plan: Local dressings to wound. Reviewed ongoing treatment with nursing staff. For OR in AM, Surgical debridement, pulse lavage biopsies / cultures. Further recommendations as his condition evolves. Time Spent With Patient Time: Total time spent is greater than 50% in coordination of care (as documented) at patient's floor/unit and/or counseling patient: Total time spent with greater than 50% in coordination of care (as documented) at patient's floor/unit and/or counseling patient:: 25 - 35 minutes
[2020-07-11] MEDS ORDERED: METOCLOPRAMIDE 10 MG/2 ML VIAL IV PRN (19:32)
[2020-07-11] MEDS ORDERED: SENNOSIDES 1 TABLET PO PRN (19:32)
[2020-07-11] MEDS ORDERED: ONDANSETRON 4 MG/2 ML VIAL IV PRN (19:32)
[2020-07-11] MEDS ORDERED: IPRATROPIUM/ALBUTEROL 3 ML AMPUL.NEB NEB PRN (19:32)
[2020-07-11] MEDS ORDERED: POLYETHYLENE GLYCOL 3350 17 GM PACKET PO PRN (19:32)
[2020-07-11] MEDS ORDERED: MAGNESIUM SULFATE 2 GM/50 ML BAG IV PRN (19:32)
[2020-07-11] MEDS ORDERED: POTASSIUM CHLORIDE 40 MEQ in DEXTROSE 5% IN WATER 500 ML IV PRN (19:32)
[2020-07-11] MEDS ORDERED: POTASSIUM CHLORIDE 20 MEQ TABLET PO PRN ×2 (19:32)
[2020-07-11] MEDS ORDERED: CLINDAMYCIN 600 MG/4 ML VIAL ONE (21:01)
[2020-07-11 21:03] LABS: C-Reactive Protein 19.5 mg/dl (0.0-0.8)
[2020-07-11 21:54] LABS: Appearance,Urine CLEAR; Bilirubin,Urine NEG (NEG); Color,Urine STRAW; Culture Indicated,Urine NO; Glucose,Urine (UA) NEGATIVE (NEG); Ketones,Urine NEG (NEG); Leukocyte Esterase,Urine NEG /uL (NEG); Nitrate,Urine NEG (NEG); Protein,Urine NEG (NEG); Urine Blood NEG mg/dL (<0.03); Urobilinogen,Urine NEG (NEG)
[2020-07-11] MEDS: CLINDAMYCIN 600 MG in DEXTROSE 5% IN WATER 50 ML IV SCH (22:03)
[2020-07-11] MEDS: PIPERACILLIN SODIUM/TAZOBACTAM 3.375 GM in DEXTROSE 5% IN WATER 50 ML IV SCH (22:04)
[2020-07-11] MEDS: HEPARIN 5,000 UNIT/ML VIAL SQ SCH (22:04)
[2020-07-11] MEDS: INSULIN GLARGINE, HUMAN 1 UNIT/0.01 ML SQ SCH (22:05)
[2020-07-11] MEDS: DOCUSATE SODIUM 100 MG CAPSULE PO SCH (22:05)
[2020-07-11] MEDS: LACTOBACILLUS 1 CAPSULE PO SCH (22:05)
[2020-07-11] MEDS: 0.9 % SODIUM CHLORIDE 10 ML SYRINGE IV SCH (22:06)
[2020-07-11 22:22] LABS: Eosinophils % (Manual) 4 % (0-7); Lymphocytes % 6 % (15-49); Monocytes % (Manual) 10 % (1-12); Platelet Estimate NORMAL (NORMAL); RBC Morphology NORMAL (NORMAL); Segmented Neutrophils % 80 % (38-78)
[2020-07-11 22:27] LABS: Erythrocyte Sedimentation Rate 92 mm/hr (0-15)
[2020-07-11] MEDS: ACETAMINOPHEN 325 MG TABLET PO PRN (22:55)
[2020-07-11 23:36] LABS: Hemoglobin A1C 6.9 % HGB (4.0-6.0)
[2020-07-12] MEDS: PIPERACILLIN SODIUM/TAZOBACTAM 3.375 GM in DEXTROSE 5% IN WATER 50 ML IV SCH ×3 (01:52→05:27)
[2020-07-12] MEDS: 0.9 % SODIUM CHLORIDE 1,000 ML IV SCH ×2 (03:55→19:22)
[2020-07-12] MEDS: CLINDAMYCIN 600 MG in DEXTROSE 5% IN WATER 50 ML IV SCH ×3 (03:57→20:20)
[2020-07-12] MEDS ORDERED: CLINDAMYCIN 600 MG/4 ML VIAL ONE (04:14)
[2020-07-12] MEDS: 0.9 % SODIUM CHLORIDE 10 ML SYRINGE IV SCH ×3 (05:09→21:21)
[2020-07-12 07:11] LABS: Basophils # (Auto) 0.11 K/mcL (0.00-0.30); Eosinophils % (Auto) 2.7 % (0.0-7.0); Granulocytes % (Auto) 65.2 % (38.0-78.0); Hematocrit 39.2 % (40.1-51.0); Hemoglobin 13.2 g/dL (13.7-17.5); Lymphocytes # (Auto) 2.26 K/mcL (1.50-4.80); Mean Cell Volume 95.1 fL (80.0-100.0); Mean Corpuscular HGB Conc 33.7 g/dL (31.0-36.0); Mean Platelet Volume 10.7 fL (7.4-10.4); Monocytes # (Auto) 1.25 K/mcL (0.10-0.90); Monocytes % (Auto) 11.1 % (1.0-12.0); Platelet Count 262 K/mcL (140-440); RBC 4.12 M/mcL (4.63-6.08); Red Cell Distribution Width 12.7 % (11.5-14.5); WBC 11.3 K/mcL (4.50-11.00)
[2020-07-12 07:38] LABS: Bilirubin,Direct < 0.2 mg/dL (0.0-0.3); Chloride 101 mmol/L (96-108)
[2020-07-12 07:39] LABS: ALT/SGPT 27 U/l (0-40); AST/SGOT 24 U/l (0-37); Albumin 2.7 gm/dL (3.2-5.2); Albumin/Globulin Ratio 0.7 (1.0-2.3); Alkaline Phosphatase 91 U/L (39-117); Bilirubin,Total 0.3 mg/dL (0.0-1.0); Blood Urea Nitrogen 11 mg/dl (6-20); Calcium 8.5 mg/dl (8.6-10.4); Carbon Dioxide 21 mmol/L (22-30); Glomerular Filtration Rate 98; Glucose 199 mg/dL (70-105); Lactate Dehydrogenase 191 U/L (94-250); Phosphorous 3.7 mg/dL (2.7-4.5); Triglycerides 97 mg/dl (<150); Uric Acid 3.6 mg/dL (2.5-8.0)
--- NOTE | 2020-07-12 07:57 | Internal Med Progress Note ---
SUBJECTIVE Subjective Patient information: Note initiated : 07/12/20 at 7:51 am Service Date, if different from initiated Date: [] Patient: Robson Landaverde 59 y/o M admitted on 07/11/20 for Lt Foot Wound. Chief Complaint: [] Interval history: Mr. Landaverde is a 59 year old M Zentz to the ED with a red swollen oozing foot left. Patient states last he stepped on a nail which did not penetrate his skin but scraped his foot up on the medial side of his left foot. Since that time is foot has become red swollen and started oozing purulent fluid . Start have skin breakdown as well. Also becoming uncomfortable. He did see ED several days ago was put on oral antibiotics and to get some IV antibiotics initially. However today when he went to wound care he was sent to the ED as it did not appear to be improving. He denies fever chills. Has history of diabetes. Has a history of hypertension but his lisinopril was stopped few months ago because he had some low blood pressures with worsening creatinine. His blood pressure now off any medication is between 114 and 190 systolic. 07/12 Patient doing well this morning. No overnight events or new complaints. Rapid COVID test came back positive this morning, however, suspect false posit ryan. He was exposed over a month ago and was tested twice with negative results. He has not had any symptoms. Review of Systems: denies headache/fever/chills/nausea/vomiting/chest or abdominal pain /cough/dyspnea/diarrhea. Otherwise see above. Constitutional Vitals: Vital Signs Temp Pulse Resp BP Pulse Ox 97.1 F 77 18 148/68 95 07/12/20 04:00 07/12/20 04:00 07/12/20 04:00 07/12/20 04:00 07/12/20 04:00 Period Temp Pulse Resp BP Sys/Razo Pulse Ox Last 24 Hr 97.1 F-99 F 41-100 16-21 143-179/68-105 95-99 Intake and Output 07/11/20 07/12/20 07/12/20 21:59 05:59 13:59 Intake Total 1910 2104 Output Total 350 2250 Balance 1560 -146 Weight 120.202 kg Intake & Output: Intake & Output 07/11/20 07/12/20 07/12/20 21:59 05:59 13:59 Intake Total 1910 2104 Output Total 350 2250 Balance 1560 -146 Weight 120.202 kg Intake: IV 1550 104 Sodium Chloride 0.9% 1,000 ml @ 1000 Wide Open IV BOLUS ONE Rx#: [id number] Cleocin 600 mg In Dextrose 5% 54 in Water 50 ml @ 100 mls/hr IV Q8H LEIDA Rx#:[id number] Zosyn 3.375 gm In Dextrose 5% 50 50 in Water 50 ml @ 100 mls/hr IV Q6H LEIDA Rx#:[id number] Vancomycin 2,000 mg In Sodium 500 Chloride 0.9% 500 ml @ 250 mls/ hr IV ONCE ONE Rx#:[id number] Oral 360 2000 Output: Void Amount 350 2250 Other: Meal Dinner Percent of Meal Consumed 100% Feeding Ability Independent Urine Appearance Clear Clear Urine Color Bright Yellow Bright Yellow Urine Odor Normal Exam: General: Alert, Awake, No acute Distress, obese Eyes/N/T: EOMI, Head/Neck: neck supple, CV: RRR, No murmurs, Pulm: Clear b/l, no wheezing/rhonchi/rales Abd: soft, nontender, +BS x4 Ext: no clubbing/cyanosis/edema with exception of left foot. Left foot in dressings Neuro: Alert, no focal deficits, moves all extremities, sensations b/l decreased and chronic skin: warm/dry OBJ DATA Labs CBC & Chem 7: 07/12/20 05:50 07/12/20 05:50 Labs: Abnormal Lab Results 07/12/20 07/12/20 07/11/20 05:50 05:50 21:03 WBC 11.3 H RBC 4.12 L Hgb 13.2 L Hct 39.2 L MPV 10.7 H Lymph % (Auto) Gran # [place] # (Auto) 1.25 H Seg Neutrophils % Lymphocytes % ESR Carbon Dioxide 21 L Glucose 199 H Hemoglobin A1c Calcium 8.5 L GGT 107 H C-Reactive Protein Albumin 2.7 L Globulin 4.0 H Albumin/Globulin Ratio 0.7 L COVID-19 PCR Covid-19 positive A 07/11/20 07/11/20 07/11/20 14:45 14:45 14:42 WBC 16.2 H RBC 4.26 L Hgb 13.6 L Hct 39.4 L MPV Lymph % (Auto) 13.6 L Gran # 12.18 H [place] # (Auto) 1.57 H Seg Neutrophils % Lymphocytes % ESR Carbon Dioxide Glucose Hemoglobin A1c 6.9 H Calcium GGT C-Reactive Protein 19.5 H Albumin Globulin 4.0 H Albumin/Globulin Ratio 0.8 L COVID-19 PCR 07/11/20 14:42 WBC RBC Hgb Hct MPV Lymph % (Auto) Gran # [place] # (Auto) Seg Neutrophils % 80 H Lymphocytes % 6 L ESR 92 H Carbon Dioxide Glucose Hemoglobin A1c Calcium GGT C-Reactive Protein Albumin Globulin Albumin/Globulin Ratio COVID-19 PCR Meds: Medications Acetaminophen (Tylenol) 650 mg PO Q6HP PRN PRN Reason: PAIN/FEVER > 101 Last Admin: 07/11/20 22:55 Dose: 650 mg Documented by: Albuterol/Ipratropium (Duoneb) 3 ml NEB Q4HP PRN PRN Reason: Shortness Of Breath Diagnostic Test (Pha) (Accu-Chek) 1 each FS ACHS [facility] Last Admin: 07/11/20 22:05 Dose: 1 each Documented by: Docusate Sodium (Colace) 100 mg PO BID [facility] Last Admin: 07/11/20 22:05 Dose: 100 mg Documented by: Heparin Sodium (Porcine) (Heparin) 5,000 unit SQ Q12 [facility] Last Admin: 07/11/20 22:04 Dose: 5,000 unit Documented by: Potassium Chloride 40 meq/ (Dextrose) 520 mls @ 130 mls/hr IV UD PRN PRN Reason: Potassium < 3 Magnesium Sulfate (Magnesium Sulfate) 2 gm in 50 mls @ 50 mls/hr IV UD PRN PRN Reason: Magnesium </= 1.6 Piperacillin Sod/Tazobactam (Sod 3.375 gm/ Dextrose) 50 mls @ 100 mls/hr IV Q6H [facility]; Protocol Last Admin: 07/12/20 05:27 Dose: 100 mls/hr Documented by: Clindamycin Phosphate 600 mg/ (Dextrose) 54 mls @ 100 mls/hr IV Q8H [facility]; Protocol Stop: 07/13/20 12:33 Last Admin: 07/12/20 03:57 Dose: 100 mls/hr Documented by: Sodium Chloride (Sodium Chloride 0.9%) 1,000 mls @ 75 mls/hr IV .[id number] [facility] Last Admin: 07/12/20 03:55 Dose: 75 mls/hr Documented by: Insulin Glargine (Lantus) 50 unit SQ HS [facility] Last Admin: 07/11/20 22:05 Dose: Not Given Documented by: Insulin Human Lispro (Humalog) 30 unit SQ TIDAC [facility] Labetalol HCl (Trandate) 0 mg IV Q2HP PRN PRN Reason: Hypertension Lactobacillus Rhamnosus (Culturelle) 1 cap PO BID [facility] Last Admin: 07/11/20 22:05 Dose: 1 cap Documented by: Metoclopramide HCl (Reglan) 10 mg IV Q6HP PRN PRN Reason: Nausea And Vomiting Ondansetron HCl (Zofran) 4 mg IV Q4HP PRN PRN Reason: Nausea And Vomiting Polyethylene Glycol (Miralax) 17 gm PO DAILYP PRN PRN Reason: Constipation Potassium Chloride (Kdur) 40 meq PO UD PRN PRN Reason: Potssium is 3-3.5 Potassium Chloride (Kdur) 40 meq PO UD PRN PRN Reason: Potassium < 3 Senna (Senokot) 2 tab PO DAILYP PRN PRN Reason: Constipation Sodium Chloride (Saline Flush) 10 ml IV Q8 [facility] Last Admin: 07/12/20 05:09 Dose: Not Given Documented by: A/P Narrative A/P Narrative: A: *LLE/foot cellulitis: failed outpt therapy -previous cx with MSSA and Strep pygenes -CT with foot cellulitis and lower leg cellulitis, no abscess noted -leukocytosis improving, ESR 92, crp 19 *DM: A1c 6.9 *h/o HTN: Was taken off lisinopril several months ago for low blood pressure and elevated creatinine *Obesity: *?COVID positive on rapid test - suspect false positive. He was exposed over a month ago & tested x2 w/negative results. He has not had any symptoms. P: -Vanc/zosyn in ED, will transition to Rocephin/Clinda -Repeat wound and blood cx pending -Dr. Tsang/wound care -repeat rapid test -basal and SSI - -ppx: heparin Time Spent With Patient Time: Total time spent is greater than 50% in coordination of care (as documented) at patient's floor/unit and/or counseling patient: QUALITY Stroke Symptom Onset Unknown: No VTE Deep Vein Thrombosis/Pulmonary Embolism Present on Admission: No
[2020-07-12] MEDS: DOCUSATE SODIUM 100 MG CAPSULE PO SCH ×2 (11:07→21:20)
[2020-07-12] MEDS: HEPARIN 5,000 UNIT/ML VIAL SQ SCH ×2 (11:07→21:20)
[2020-07-12] MEDS: LACTOBACILLUS 1 CAPSULE PO SCH ×2 (11:08→21:20)
[2020-07-12] MEDS: cefTRIAXone 2 GM in DEXTROSE 5% IN WATER 50 ML IV SCH (11:31)
--- NOTE | 2020-07-12 12:03 | General Surgery Progress Note ---
SUBJECTIVE Subjective Patient information: Note initiated : 07/12/20 at 11:55 am Service Date, if different from initiated Date: [] Patient: Robson Landaverde 59 y/o M admitted on 07/11/20 for Lt Foot Wound. Chief Complaint: [] Additional PMFSH (Level 3 Only): No changes in clinical examination overnight . COVID Rapid test positive. Scheduled OR surgical debridement was cancelled. Proceeded to carry out the procedure at bedside with appropriate precautions and adequate nursing help. Constitutional Vitals: Vital Signs Temp Pulse Resp BP Pulse Ox 96.4 F L 88 20 130/78 95 07/12/20 07:55 07/12/20 07:55 07/12/20 07:55 07/12/20 07:55 07/12/20 07:55 Period Temp Pulse Resp BP Sys/Razo Pulse Ox Last 24 Hr 96.4 F-99 F 41-100 16-21 130-179/68-105 95-99 Intake and Output 07/11/20 07/12/20 07/12/20 21:59 05:59 13:59 Intake Total 1910 2104 Output Total 350 2250 Balance 1560 -146 Weight 265 lb Intake & Output: Intake & Output 07/11/20 07/12/20 07/12/20 21:59 05:59 13:59 Intake Total 1910 2104 Output Total 350 2250 Balance 1560 -146 Weight 265 lb Intake: IV 1550 104 Sodium Chloride 0.9% 1,000 ml @ 1000 Wide Open IV [facility] Rx#: [id number] Cleocin 600 mg In Dextrose 5% 54 in Water 50 ml @ 100 mls/hr IV Q8H [facility] Rx#:[id number] Zosyn 3.375 gm In Dextrose 5% 50 50 in Water 50 ml @ 100 mls/hr IV Q6H [facility] Rx#:[id number] Vancomycin 2,000 mg In Sodium 500 Chloride 0.9% 500 ml @ 250 mls/ hr IV ONCE ONE Rx#:[id number] Oral 360 2000 Output: Void Amount 350 2250 Other: Meal Dinner Percent of Meal Consumed 100% Feeding Ability Independent Urine Appearance Clear Clear Urine Color Bright Yellow Bright Yellow Urine Odor Normal Exam: AVSS, HD Stable. No changes MOE. Labs reviewed. L/E: LEFT foot Diabetic neuropathy. Blister along base of great toe with fluctuance along dorsal forefoot and medial , plantar aspect of great toe base. See Photographs. A/P Narrative A/P Narrative: Assessment: CSSSI, SEPSIS LEFT foot / great toe. NO evidence of osteo on CT. Mainly a skin and soft tissue infection process. Plan: Surgical Debridement with tissue samples for Pathology and cultures. I saw this patient along with Delma NAM In Patient wound Care Nurse. Informed verbal consent obtained for procedure at bedside under LA. LMX. He understands and agrees with plan of treatment. Time Spent With Patient Time: Total time spent is greater than 50% in coordination of care (as docu mented) at patient's floor/unit and/or counseling patient: Total time spent with greater than 50% in coordination of care (as documented) at patient's floor/unit and/or counseling patient:: 25 - 35 minutes
--- NOTE | 2020-07-12 12:06 | Brief Operative Note ---
Brief Operative Note Date of procedure: 07/12/20 Pre-op diagnosis: CSSSI / Sepsis Left foot , great toe and dorsal, medial and plantar surface Post-op diagnosis: same Procedure: Surgical Debridement Grafts/Implants: No Anesthesia: local (LMX creme.) Findings: Blister with purulent fluid. Final dimensions 7.5 x 3.5 x 1.5 CM Complications: none Surgeon: Justo Tsang Estimated blood loss (cc): 2 Specimens Removed/Pathology: other (Tissue for culture and sensitivity and abscess wall for pathology. ) Condition: stable Disposition: floor
[2020-07-12] MEDS: INSULIN LISPRO 1 UNIT/0.01 ML UNIT SQ SCH ×7 (12:37→21:01)
--- NOTE | 2020-07-12 12:40 | Operative Note ---
DATE OF OPERATION: 07/12/2020 PREOPERATIVE DIAGNOSIS: Complicated skin and skin structure infection, left dorsal foot, great toe base starting from the dorsal medial and plantar aspect. POSTOPERATIVE DIAGNOSIS: Complicated skin and skin structure infection, left dorsal foot, great toe base starting from the dorsal medial and plantar aspect. FINAL WOUND DIMENSIONS: 7.5 x 3.5 x 1.5 cm. ANESTHESIA: Local LMX cream. SURGEON: Justo Tsang MD. ESTIMATED BLOOD LOSS: 2 mL INSTRUMENT COUNT: Count of swabs, instruments and needles was reported to be correct. INDICATION FOR PROCEDURE: This is a patient with uncontrolled diabetes and a complicated skin and skin structure infection which has failed outpatient treatment. He has tested positive on rapid COVID test. Hence, his surgical debridement in the OR was canceled and I proceeded to carry out same under local anesthesia at his bedside. PROCEDURE IN DETAIL: After obtaining informed verbal consent, I proceeded to carry out this procedure at bedside. The wound was already cleaned and treated with LMX cream. With adequate help, the area was cleaned, prepped and draped. Betadine swab was applied around the wound margins and over the wound surface. Using a pickup and scissors, the devitalized skin along the dorsal surface of foot was excised. This led to a pocket of purulent collection proximal to the base of the toes. This area was carefully explored and opened and all the dorsal devitalized skin was excised with pickup and scissors. The wound base was curetted with #5 curet. Corrugator Helper samples were obtained for gram stain and cultures. A portion of the abscess wall was sent for pathology and histology. The wound was copiously irrigated with normal saline. We packed it open with Xeroform gauze reinforced with 4 x 4 gauze, Kerlix and GASPER bandages respectively. The procedure was well tolerated. Detailed postoperative orders are entered in the patient's chart. VD:tina Job ID: [id number] Doc ID: [id number] Justo Tsang MD
[2020-07-12] MEDS: ACETAMINOPHEN 325 MG TABLET PO PRN (12:49)
[2020-07-12] MEDS ORDERED: CLINDAMYCIN 600 MG in DEXTROSE 5% IN WATER 50 ML IV ONE (13:45)
[2020-07-12] MEDS: GENTAMICIN SULFATE 40 MG, CLINDAMYCIN 300 MG, BACITRACIN 25,000 UNIT in SODIUM CHLORIDE... IRR SCH ×2 (15:22→21:21)
[2020-07-12] MEDS: HYDROcodone/APAP 5/325MG TABLET PO PRN ×2 (17:07→21:34)
[2020-07-12] MEDS: INSULIN GLARGINE, HUMAN 1 UNIT/0.01 ML SQ SCH (21:20)
[2020-07-13] MEDS: 0.9 % SODIUM CHLORIDE 10 ML SYRINGE IV SCH ×3 (04:06→21:49)
[2020-07-13] MEDS: CLINDAMYCIN 600 MG in DEXTROSE 5% IN WATER 50 ML IV SCH ×2 (04:06→11:57)
[2020-07-13] MEDS: HYDROcodone/APAP 5/325MG TABLET PO PRN ×5 (04:22→22:19)
[2020-07-13] MEDS: LABETALOL 5 MG/ML ML IV PRN ×2 (04:23→07:38)
[2020-07-13 06:34] LABS: Basophils # (Auto) 0.08 K/mcL (0.00-0.30); Basophils % (Auto) 0.8 % (0.0-2.0); Eosinophils % (Auto) 3.1 % (0.0-7.0); Granulocytes % (Auto) 62.3 % (38.0-78.0); Hematocrit 38.8 % (40.1-51.0); Hemoglobin 13.1 g/dL (13.7-17.5); Lymphocytes # (Auto) 2.14 K/mcL (1.50-4.80); Lymphocytes % (Auto) 21.9 % (15.5-49.0); Mean Cell Volume 95.3 fL (80.0-100.0); Mean Corpuscular HGB Conc 33.8 g/dL (31.0-36.0); Monocytes # (Auto) 1.16 K/mcL (0.10-0.90); Monocytes % (Auto) 11.9 % (1.0-12.0); Platelet Count 298 K/mcL (140-440); RBC 4.07 M/mcL (4.63-6.08); Red Cell Distribution Width 12.5 % (11.5-14.5); WBC 9.8 K/mcL (4.50-11.00)
[2020-07-13 06:58] LABS: Blood Urea Nitrogen 11 mg/dl (6-20); C-Reactive Protein 6.3 mg/dl (0.0-0.8); Calcium 8.8 mg/dl (8.6-10.4); Carbon Dioxide 24 mmol/L (22-30); Chloride 99 mmol/L (96-108); Glomerular Filtration Rate 98; Glucose 204 mg/dL (70-105)
[2020-07-13] MEDS: 0.9 % SODIUM CHLORIDE 1,000 ML IV SCH (07:40)
[2020-07-13] MEDS: INSULIN LISPRO 1 UNIT/0.01 ML UNIT SQ SCH ×7 (07:40→21:49)
--- NOTE | 2020-07-13 07:46 | Internal Med Progress Note ---
SUBJECTIVE Subjective Patient information: Note initiated : 07/13/20 at 7:41 am Service Date, if different from initiated Date: [] Patient: Robson Landaverde 59 y/o M admitted on 07/11/20 for Lt Foot Wound. Chief Complaint: [] Interval history: Mr. Landaverde is a 59 year old M Zentz to the ED with a red swollen oozing foot left. Patient states last he stepped on a nail which did not penetrate his skin but scraped his foot up on the medial side of his left foot. Since that time is foot has become red swollen and started oozing purulent fluid . Start have skin breakdown as well. Also becoming uncomfortable. He did see ED several days ago was put on oral antibiotics and to get some IV antibiotics initially. However today when he went to wound care he was sent to the ED as it did not appear to be improving. He denies fever chills. Has history of diabetes. Has a history of hypertension but his lisinopril was stopped few months ago because he had some low blood pressures with worsening creatinine. His blood pressure now off any medication is between 114 and 190 systolic. 07/12 Patient doing well this morning. No overnight events or new complaints. Rapid COVID test came back positive this morning, however, suspect false posit ryan. He was exposed over a month ago and was tested twice with negative results. He has not had any symptoms. 07/13 Patient doing well and feeling well. He had bedside I&D by Dr. Tsang yesterday. Awaiting final wound cultures. Review of Systems: denies headache/fever/chills/nausea/vomiting/chest or abdominal pain/cough/dyspnea/diarrhea. Otherwise see above. Constitutional Vitals: Vital Signs Temp Pulse Resp BP Pulse Ox 97.1 F 84 16 170/90 95 07/13/20 07:17 07/13/20 07:25 07/13/20 07:17 07/13/20 07:17 07/13/20 07:17 Period Temp Pulse Resp BP Sys/Razo Pulse Ox Last 24 Hr 96.4 F-98.4 F 84-94 12-24 130-170/78-96 95-98 Intake and Output 07/12/20 07/13/20 07/13/20 21:59 05:59 13:59 Intake Total 2442 391 Output Total 3075 9646 Balance -633 1209 Weight 119.748 kg Intake & Output: Intake & Output 07/12/20 07/13/20 07/13/20 21:59 05:59 13:59 Intake Total 2442 391 Output Total 3075 1497 Balance -633 1206 Weight 119.748 kg Intake: IV 1162 54 Sodium Chloride 0.9% 1,000 ml @ 1000 75 mls/hr IV .[id number] [facility] Rx#: [id number] Cleocin 600 mg In Dextrose 5% 162 54 in Water 50 ml @ 100 mls/hr IV Q8H [facility] Rx#:[id number] Oral 1280 337 Output: Void Amount 3072 1600 Other: Meal Dinner Percent of Meal Consumed 100% 100% Feeding Ability Independent Nourishment/Supplement name Egg salad, fruit cup x2, milk Urine Appearance Clear Clear Clear Urine Color Pale Pale Bright Yellow Urine Odor Normal Exam: General: Alert, Awake, No acute Distress, obese Eyes/N/T: EOMI, Head/Neck: neck supple, CV: RRR, No murmurs, Pulm: Clear b/l, no wheezing/rhonchi/rales Abd: soft, nontender, +BS x4 Ext: no clubbing/cyanosis/edema with exception of left foot. Left foot in dressings Neuro: Alert, no focal deficits, moves all extremities, sensations b/l decreased and chronic skin: warm/dry OBJ DATA Labs CBC & Chem 7: 07/13/20 05:46 07/13/20 05:46 Labs: Abnormal Lab Results 07/13/20 07/13/20 07/12/20 05:46 05:46 05:50 WBC RBC 4.07 L Hgb 13.1 L Hct 38.8 L MPV Lymph % (Auto) Gran # [place] # (Auto) 1.16 H Seg Neutrophils % Lymphocytes % ESR Carbon Dioxide 21 L Glucose 204 H 199 H Hemoglobin A1c Calcium 8.5 L GGT 107 H C-Reactive Protein 6.3 H Albumin 2.7 L Globulin 4.0 H Albumin/Globulin Ratio 0.7 L COVID-19 PCR 07/12/20 07/11/20 07/11/20 05:50 21:03 14:45 WBC 11.3 H RBC 4.12 L Hgb 13.2 L Hct 39.2 L MPV 10.7 H Lymph % (Auto) Gran # [place] # (Auto) 1.25 H Seg Neutrophils % Lymphocytes % ESR Carbon Dioxide Glucose Hemoglobin A1c Calcium GGT C-Reactive Protein Albumin Globulin 4.0 H Albumin/Globulin Ratio 0.8 L COVID-19 PCR Covid-19 positive A 07/11/20 07/11/20 07/11/20 14:45 14:42 14:42 WBC 16.2 H RBC 4.26 L Hgb 13.6 L Hct 39.4 L MPV Lymph % (Auto) 13.6 L Gran # 12.18 H [place] # (Auto) 1.57 H Seg Neutrophils % 80 H Lymphocytes % 6 L ESR 92 H Carbon Dioxide Glucose Hemoglobin A1c 6.9 H Calcium GGT C-Reactive Protein 19.5 H Albumin Globulin Albumin/Globulin Ratio COVID-19 PCR Meds: Medications Acetaminophen (Tylenol) 650 mg PO Q6HP PRN PRN Reason: PAIN/FEVER > 101 Last Admin: 07/12/20 12:49 Dose: 650 mg Documented by: Hydrocodone Bitart/Acetaminophen ([place] 5/325mg) 1 tab PO Q4HP PRN; Protocol PRN Reason: Per Pain Protocol Last Admin: 07/13/20 04:22 Dose: 1 tab Documented by: Albuterol/Ipratropium (Duoneb) 3 ml NEB Q4HP PRN PRN Reason: Shortness Of Breath Diagnostic Test (Pha) (Accu-Chek) 1 each FS ACHS [facility] Last Admin: 07/13/20 07:38 Dose: 1 each Documented by: Docusate Sodium (Colace) 100 mg PO BID [facility] Last Admin: 07/12/20 21:20 Dose: 100 mg Documented by: Heparin Sodium (Porcine) (Heparin) 5,000 unit SQ Q12 [facility] Last Admin: 07/12/20 21:20 Dose: 5,000 unit Documented by: Potassium Chloride 40 meq/ (Dextrose) 520 mls @ 130 mls/hr IV UD PRN PRN Reason: Potassium < 3 Magnesium Sulfate (Magnesium Sulfate) 2 gm in 50 mls @ 50 mls/hr IV UD PRN PRN Reason: Magnesium </= 1.6 Clindamycin Phosphate 600 mg/ (Dextrose) 54 mls @ 100 mls/hr IV Q8H [facility]; Protocol Stop: 07/13/20 12:33 Last Infusion: 07/13/20 05:56 Dose: Infused Documented by: Sodium Chloride (Sodium Chloride 0.9%) 1,000 mls @ 75 mls/hr IV .[id number] [facility] Last Admin: 07/13/20 07:40 Dose: Not Given Documented by: Ceftriaxone Sodium 2 gm/ (Dextrose) 50 mls @ 100 mls/hr IV DAILY [facility]; Protocol Last Admin: 07/12/20 11:31 Dose: 100 mls/hr Documented by: Gentamicin Sulfate 40 mg/Clindamycin Phosphate 300 mg/Bacitracin 25,000 unit/ Sodium Chloride 503 mls @ 0 mls/hr IRR TID [facility] Last Admin: 07/12/20 21:21 Dose: 20 mls/hr Documented by: Insulin Glargine (Lantus) 50 unit SQ HS [facility] Last Admin: 07/12/20 21:20 Dose: 50 units Documented by: Insulin Human Lispro (Humalog) 30 unit SQ TIDAC [facility] Last Admin: 07/13/20 07:40 Dose: 2 units Documented by: Insulin Human Lispro (Humalog) 0 unit SQ ACHS [facility]; Protocol Last Admin: 07/13/20 07:40 Dose: 30 units Documented by: Labetalol HCl (Trandate) 0 mg IV Q2HP PRN PRN Reason: Hypertension Last Admin: 07/13/20 07:38 Dose: 20 mg Documented by: Lactobacillus Rhamnosus (Culturelle) 1 cap PO BID [facility] Last Admin: 07/12/20 21:20 Dose: 1 cap Documented by: Metoclopramide HCl (Reglan) 10 mg IV Q6HP PRN PRN Reason: Nausea And Vomiting Ondansetron HCl (Zofran) 4 mg IV Q4HP PRN PRN Reason: Nausea And Vomiting Polyethylene Glycol (Miralax) 17 gm PO DAILYP PRN PRN Reason: Constipation Potassium Chloride (Kdur) 40 meq PO UD PRN PRN Reason: Potssium is 3-3.5 Potassium Chloride (Kdur) 40 meq PO UD PRN PRN Reason: Potassium < 3 Senna (Senokot) 2 tab PO DAILYP PRN PRN Reason: Constipation Sodium Chloride (Saline Flush) 10 ml IV Q8 [facility] Last Admin: 07/13/20 04:06 Dose: Not Given Documented by: A/P Narrative A/P Narrative: A: *LLE/foot cellulitis: failed outpt therapy. s/p I&D (07/12) -previous cx with MSSA and Strep pygenes -CT with foot cellulitis and lower leg cellulitis, no abscess noted -leukocytosis resolved, crp improving *DM: A1c 6.9 *h/o HTN: Was taken off lisinopril several months ago for low blood pressure and elevated creatinine *Obesity: *COVID positive on rapid test -?false positive as he was exposed over a month ago & tested x2 w/negative results. He has not had any symptoms. 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 P: -cont Rocephin/Clinda -Repeat wound and blood cx pending -Dr. Tsang/wound care -covid send out -basal and SSI - Time Spent With Patient Time: Total time spent is greater than 50% in coordination of care (as doc umented) at patient's floor/unit and/or counseling patient: QUALITY Stroke Symptom Onset Unknown: No VTE Deep Vein Thrombosis/Pulmonary Embolism Present on Admission: No
[2020-07-13] MEDS: DOCUSATE SODIUM 100 MG CAPSULE PO SCH ×2 (09:12→21:48)
[2020-07-13] MEDS: LACTOBACILLUS 1 CAPSULE PO SCH ×2 (09:12→21:48)
[2020-07-13] MEDS: cefTRIAXone 2 GM in DEXTROSE 5% IN WATER 50 ML IV SCH (09:13)
[2020-07-13] MEDS: HEPARIN 5,000 UNIT/ML VIAL SQ SCH ×2 (09:13→21:48)
[2020-07-13] MEDS: GENTAMICIN SULFATE 40 MG, CLINDAMYCIN 300 MG, BACITRACIN 25,000 UNIT in SODIUM CHLORIDE... IRR SCH ×3 (09:24→21:51)
--- NOTE | 2020-07-13 10:24 | General Surgery Progress Note ---
SUBJECTIVE Subjective Patient information: Note initiated : 07/13/20 at 10:21 am Service Date, if different from initiated Date: [] Patient: Robson Landaverde 59 y/o M admitted on 07/11/20 for Lt Foot Wound. Chief Complaint: [] Additional PMFSH (Level 3 Only): Doing well. Local wound care and dressing changes ongoing. Constitutional Vitals: Vital Signs Temp Pulse Resp BP Pulse Ox 97.1 F 84 16 170/90 95 07/13/20 07:17 07/13/20 07:25 07/13/20 07:17 07/13/20 07:17 07/13/20 07:17 Period Temp Pulse Resp BP Sys/Razo Pulse Ox Last 24 Hr 97.1 F-98.4 F 84-94 12-24 130-170/78-96 95-98 Intake and Output 07/12/20 07/13/20 07/13/20 21:59 05:59 13:59 Intake Total 2442 391 Output Total 3075 1600 Balance -633 -1209 Weight 264 lb Intake & Output: Intake & Output 07/12/20 07/13/20 07/13/20 21:59 05:59 13:59 Intake Total 2442 391 Output Total 3075 1600 Balance -633 -1209 Weight 264 lb Intake: IV 1162 54 Sodium Chloride 0.9% 1,000 ml @ 1000 75 mls/hr IV .[id number] [facility] Rx#: [id number] Cleocin 600 mg In Dextrose 5% 162 54 in Water 50 ml @ 100 mls/hr IV Q8H [facility] Rx#:[id number] Oral 1280 337 Output: Void Amount 3075 1600 Other: Meal Dinner Percent of Meal Consumed 100% 100% Feeding Ability Independent Nourishment/Supplement name Egg salad, fruit cup x2, milk Urine Appearance Clear Clear Clear Urine Color Pale Pale Bright Yellow Urine Odor Normal Exam: AVSS. No changes MOE Left foot wound care to continue. On IV antibiotics. Awaits c/s and pathology reports Plan: Continue present treatment. Following patient. A/P Time Spent With Patient Time: Total time spent is greater than 50% in coordination of care (as documented) at patient's floor/unit and/or counseling patient:
[2020-07-13] MEDS: ACETAMINOPHEN 325 MG TABLET PO PRN (11:58)
--- NOTE | 2020-07-13 13:29 | Surgical Pathology Report ---
HISTOLOGY SPECIMEN MICROSCOPIC DIAGNOSIS SKIN, LEFT MEDIAL FOOT, EXCISION: -- GANGRENOUS EPIDERMAL ULCERATION WITH DENSE ACUTE/CHRONIC INFLAMMATION, FIBROSIS, EDEMA, HEMORRHAGE AND IMPETIGINIZED SCALE CRUST. -- NO MALIGNANCY IDENTIFIED. (ACP:sln) CLINICAL HISTORY Left foot wound. PROCEDURAL IMPRESSION Cellulitis. GROSS DESCRIPTION Received in formalin labeled left medial foot, is an oriented dusky sauceda piece of skin that measures 3.1 x 0.9 x 0.5 cm. There is a 1.9 x 0.9 cm red possibly ulcerated area. The margin is inked black. Sectioned, entirely submitted - two cassettes with the tips in A1. (SCB:sln) Electronically Signed by: Eddie Nelson M.D.
[2020-07-13] MEDS: INSULIN GLARGINE, HUMAN 1 UNIT/0.01 ML SQ SCH (21:49)
[2020-07-14] MEDS: 0.9 % SODIUM CHLORIDE 10 ML SYRINGE IV SCH ×3 (06:17→21:11)
--- NOTE | 2020-07-14 08:12 | Internal Med Progress Note ---
SUBJECTIVE Subjective Patient information: Note initiated : 07/14/20 at 8:09 am Service Date, if different from initiated Date: [] Patient: Robson Landaverde a 59 y/o M admitted on 07/11/20 for Lt Foot Wound. Chief Complaint: [] Interval history: Mr. Landaverde is a 59 year old M Zentz to the ED with a red swollen oozing foot left. Patient states last he stepped on a nail which did not penetrate his skin but scraped his foot up on the medial side of his left foot. Since that time is foot has become red swollen and started oozing purulent fluid . Start have skin breakdown as well. Also becoming uncomfortable. He did see ED several days ago was put on oral antibiotics and to get some IV antibiotics initially. However today when he went to wound care he was sent to the ED as it did not appear to be improving. He denies fever chills. Has history of diabetes. Has a history of hypertension but his lisinopril was stopped few months ago because he had some low blood pressures with worsening creatinine. His blood pressure now off any medication is between 114 and 190 systolic. 07/12 Patient doing well this morning. No overnight events or new complaints. Rapid COVID test came back positive this morning, however, suspect false posit ryan. He was exposed over a month ago and was tested twice with negative results. He has not had any symptoms. 07/13 Patient doing well and feeling well. He had bedside I&D by Dr. Tsang yesterday. Awaiting final wound cultures. 07/14 Slept well . no new complaints. Awaiting final wound culture results with sensitivities. Review of Systems: denies headache/fever/chills/nausea/vomiting/chest or abdominal pain/cough/dyspnea/diarrhea. Otherwise see above. Constitutional Vitals: Vital Signs Temp Pulse Resp BP Pulse Ox 98.0 F 85 18 154/93 95 07/14/20 07:00 07/14/20 07:00 07/14/20 07:00 07/14/20 07:00 07/14/20 07:00 Period Temp Pulse Resp BP Sys/Razo Pulse Ox Last 24 Hr 96.9 F-98.4 F 81-92 - 122-158/78-93 92-97 Intake and Output 08/07/14/20 07/14/20 21:59 05:59 13:59 Intake Total 1100 200 800 Output Total 2400 2275 750 Balance -1300 -5 50 Weight 116.573 kg Intake & Output: Intake & Output 07/13/20 07/14/20 07/14/20 21:59 05:59 13:59 Intake Total 1100 200 800 Output Total 2400 2275 750 Balance -1300 -2075 50 Weight 116.573 kg Intake: Oral 1100 200 800 Output: Void Amount 2400 2275 750 Other: Meal Dinner Snack Percent of Meal Consumed 100% 100% Feeding Ability Independent Independent Urine Appearance Clear Clear Urine Color Bright Yellow Bright Yellow Bright Yellow Urine Odor Normal OBJ DATA Labs CBC & Chem 7: 07/13/20 05:46 07/13/20 05:46 Labs: Abnormal Lab Results 07/13/20 07/13/20 07/12/20 05:46 05:46 05:50 WBC RBC 4.07 L Hgb 13.1 L Hct 38.8 L MPV Lymph % (Auto) Gran # [place] # (Auto) 1.16 H Seg Neutrophils % Lymphocytes % ESR Carbon Dioxide 21 L Glucose 204 H 199 H Hemoglobin A1c Calcium 8.5 L GGT 107 H C-Reactive Protein 6.3 H Albumin 2.7 L Globulin 4.0 H Albumin/Globulin Ratio 0.7 L COVID-19 PCR 07/12/20 07/11/20 07/11/20 05:50 21:03 14:45 WBC 11.3 H RBC 4.12 L Hgb 13.2 L Hct 39.2 L MPV 10.7 H Lymph % (Auto) Gran # [place] # (Auto) 1.25 H Seg Neutrophils % Lymphocytes % ESR Carbon Dioxide Glucose Hemoglobin A1c Calcium GGT C-Reactive Protein Albumin Globulin 4.0 H Albumin/Globulin Ratio 0.8 L COVID-19 PCR Covid-19 positive A 07/11/20 07/11/20 07/11/20 14:45 14:42 14:42 WBC 16.2 H RBC 4.26 L Hgb 13.6 L Hct 39.4 L MPV Lymph % (Auto) 13.6 L Gran # 12.18 H [place] # (Auto) 1.57 H Seg Neutrophils % 80 H Lymphocytes % 6 L ESR 92 H Carbon Dioxide Glucose Hemoglobin A1c 6.9 H Calcium GGT C-Reactive Protein 19.5 H Albumin Globulin Albumin/Globulin Ratio COVID-19 PCR Meds: Medications Acetaminophen (Tylenol) 650 mg PO Q6HP PRN PRN Reason: PAIN/FEVER > 101 Last Admin: 07/13/20 11:58 Dose: 650 mg Documented by: Hydrocodone Bitart/Acetaminophen ([place] 5/325mg) 1 tab PO Q4HP PRN; Protocol PRN Reason: Per Pain Protocol Last Admin: 07/13/20 22:19 Dose: 1 tab Documented by: Albuterol/Ipratropium (Duoneb) 3 ml NEB Q4HP PRN PRN Reason: Shortness Of Breath Diagnostic Test (Pha) (Accu-Chek) 1 each FS ACHS [facility] Last Admin: 07/13/20 21:48 Dose: 1 each Documented by: Docusate Sodium (Colace) 100 mg PO BID [facility] Last Admin: 07/13/20 21:48 Dose: 100 mg Documented by: Heparin Sodium (Porcine) (Heparin) 5,000 unit SQ Q12 [facility] Last Admin: 07/13/20 21:48 Dose: 5,000 unit Documented by: Potassium Chloride 40 meq/ (Dextrose) 520 mls @ 130 mls/hr IV UD PRN PRN Reason: Potassium < 3 Magnesium Sulfate (Magnesium Sulfate) 2 gm in 50 mls @ 50 mls/hr IV UD PRN PRN Reason: Magnesium </= 1.6 Ceftriaxone Sodium 2 gm/ (Dextrose) 50 mls @ 100 mls/hr IV DAILY [facility]; Protocol Last Infusion: 07/13/20 10:56 Dose: Infused Documented by: Gentamicin Sulfate 40 mg/Clindamycin Phosphate 300 mg/Bacitracin 25,000 unit/ Sodium Chloride 503 mls @ 0 mls/hr IRR TID [facility] Last Admin: 07/13/20 21:51 Dose: 30 mls/hr Documented by: Insulin Glargine (Lantus) 50 unit SQ HS [facility] Last Admin: 07/13/20 21:49 Dose: 50 units Documented by: Insulin Human Lispro (Humalog) 30 unit SQ TIDAC [facility] Last Admin: 07/13/20 17:22 Dose: 30 units Documented by: Insulin Human Lispro (Humalog) 0 unit SQ ACHS [facility]; Protocol Last Admin: 07/13/20 21:49 Dose: Not Given Documented by: Labetalol HCl (Trandate) 0 mg IV Q2HP PRN PRN Reason: Hypertension Last Admin: 07/13/20 07:38 Dose: 20 mg Documented by: Lactobacillus Rhamnosus (Culturelle) 1 cap PO BID [facility] Last Admin: 07/13/20 21:48 Dose: 1 cap Documented by: Metoclopramide HCl (Reglan) 10 mg IV Q6HP PRN PRN Reason: Nausea And Vomiting Ondansetron HCl (Zofran) 4 mg IV Q4HP PRN PRN Reason: Nausea And Vomiting Polyethylene Glycol (Miralax) 17 gm PO DAILYP PRN PRN Reason: Constipation Potassium Chloride (Kdur) 40 meq PO UD PRN PRN Reason: Potssium is 3-3.5 Potassium Chloride (Kdur) 40 meq PO UD PRN PRN Reason: Potassium < 3 Senna (Senokot) 2 tab PO DAILYP PRN PRN Reason: Constipation Sodium Chloride (Saline Flush) 10 ml IV Q8 [facility] Last Admin: 07/14/20 06:17 Dose: 10 ml Documented by: A/P Narrative A/P Narrative: A: *LLE/foot cellulitis: failed outpt therapy. s/p I&D (07/12) -Wound cx with Strep pygenes and GPC -CT with foot cellulitis and lower leg cellulitis, no abscess noted -leukocytosis resolved, crp improving *DM: A1c 6.9 *h/o HTN: Was taken off lisinopril several months ago for low blood pressure and elevated creatinine *Obesity: *rapid COVID positive but Send Out Negativet -?false positive as he was exposed over a month ago & tested x2 w/negative results. He has not had any symptoms. 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 P: -cont Rocephin/Clinda - deescalate based on cultures -awaiting final wound and blood cx pending -Dr. Tsang/wound care -basal and SSI -ppx: heparin Time Spent With Patient Time: Total time spent is greater than 50% in coordination of care (as documented) at patient's floor/unit and/or counseling patient: QUALITY Stroke Symptom Onset Unknown: No VTE Deep Vein Thrombosis/Pulmonary Embolism Present on Admission: No
[2020-07-14] MEDS: INSULIN LISPRO 1 UNIT/0.01 ML UNIT SQ SCH ×7 (08:54→21:10)
[2020-07-14] MEDS: DOCUSATE SODIUM 100 MG CAPSULE PO SCH ×2 (08:54→21:28)
[2020-07-14] MEDS: LACTOBACILLUS 1 CAPSULE PO SCH ×2 (08:55→21:29)
[2020-07-14] MEDS: HEPARIN 5,000 UNIT/ML VIAL SQ SCH ×2 (08:55→21:29)
[2020-07-14] MEDS: cefTRIAXone 2 GM in DEXTROSE 5% IN WATER 50 ML IV SCH (08:56)
[2020-07-14] MEDS: GENTAMICIN SULFATE 40 MG, CLINDAMYCIN 300 MG, BACITRACIN 25,000 UNIT in SODIUM CHLORIDE... IRR SCH ×3 (08:56→21:30)
[2020-07-14] MEDS: HYDROcodone/APAP 5/325MG TABLET PO PRN ×3 (09:43→21:28)
[2020-07-14] MEDS: CLINDAMYCIN 150 MG CAPSULE PO SCH ×2 (12:12→17:12)
[2020-07-14] MEDS: LABETALOL 5 MG/ML ML IV PRN ×2 (16:14→22:01)
--- NOTE | 2020-07-14 16:35 | General Surgery Progress Note ---
SUBJECTIVE Subjective Patient information: Note initiated : 07/14/20 at 4:28 pm Service Date, if different from initiated Date: [] Patient: Robson Landaverde 59 y/o M admitted on 07/11/20 for Lt Foot Wound. Chief Complaint: [] Additional PMFSH (Level 3 Only): Patient seen. Progress reviewed with nursing staff. Constitutional Vitals: Vital Signs Temp Pulse Resp BP Pulse Ox 98.5 F 85 18 151/96 96 07/14/20 15:48 07/14/20 15:48 07/14/20 15:48 07/14/20 15:48 07/14/20 15:48 Period Temp Pulse Resp BP Sys/Razo Pulse Ox Last 24 Hr 97.8 F-99.3 F 82-92 14-18 144-158/80-96 92-97 Intake and Output 07/14/20 07/14/20 07/14/20 05:59 13:59 21:59 Intake Total 200 2160 560 Output Total 2275 2150 750 Balance -2075 10 -190 Intake & Output: Intake & Output 07/14/20 07/14/20 07/14/20 05:59 13:59 21:59 Intake Total 200 2160 560 Output Total 2275 2150 750 Balance -2075 10 -190 Intake: Oral 200 2160 560 Output: Void Amount 2275 2150 750 Other: Meal Snack Breakfast Lunch Percent of Meal Consumed 100% 100% 100% Feeding Ability Independent Independent Independent Urine Appearance Clear Clear Urine Color Bright Yellow Bright Yellow Urine Odor Normal Normal # Bowel Movements 1 Exam: AVSS, No interval changes MOE. Labs CRP / WBC trending down Glucose 200s Cr 0.8 Covid 19 + On SARS [place] 2 - PCR Neg on 07/13/2020 Wound c/s Staph A, Strep pyo A, Aeromonas Left foot daily dressing changes ongoing. Wound cleaned and dressed at this time. A/P Narrative A/P Narrative: Assessment: Progressing well. On appropriate IV antibiotics and local wound care with GCB solution. Will Check wounds tomorrow AM. Further recommendations later. Plan: Continue current treatment at this time. Time Spent With Patient Time: Total time spent is greater than 50% in coordination of care (as documented) at patient's floor/unit and/or counseling patient: Total time spent with greater than 50% in coordination of care (as documented) at patient's floor/unit and/or counseling patient:: 15 - 24 minutes
[2020-07-14] MEDS: INSULIN GLARGINE, HUMAN 1 UNIT/0.01 ML SQ SCH (21:29)
[2020-07-15] MEDS: CLINDAMYCIN 150 MG CAPSULE PO SCH ×2 (00:03→06:08)
[2020-07-15] MEDS: HYDROcodone/APAP 5/325MG TABLET PO PRN ×4 (02:27→20:19)
[2020-07-15] MEDS: 0.9 % SODIUM CHLORIDE 10 ML SYRINGE IV SCH ×3 (06:09→20:19)
--- NOTE | 2020-07-15 07:44 | General Surgery Progress Note ---
SUBJECTIVE Subjective Patient information: Note initiated : 07/15/20 at 7:39 am Service Date, if different from initiated Date: [] Patient: Robson Landaverde 59 y/o M admitted on 07/11/20 for Lt Foot Wound. Chief Complaint: [] Additional PMFSH (Level 3 Only): Patient seen with Francisca NAM. LEFT foot wound examined. Constitutional Vitals: Vital Signs Temp Pulse Resp BP Pulse Ox 97.8 F 95 H 20 154/88 95 07/15/20 04:24 07/15/20 04:24 07/15/20 04:24 07/15/20 04:24 07/15/20 04:24 Period Temp Pulse Resp BP Sys/Razo Pulse Ox Last 24 Hr 96.8 F-99.3 F 82-95 18-20 151-167/85-102 93-96 Intake and Output 07/14/20 07/15/20 07/15/20 21:59 05:59 13:59 Intake Total 920 800 480 Output Total 2250 1200 585 Balance -1330 -400 -105 Weight 257 lb Intake & Output: Intake & Output 07/14/20 07/15/20 07/15/20 21:59 05:59 13:59 Intake Total 920 800 480 Output Total 2250 1200 585 Balance -1330 -400 -105 Weight 257 lb Intake: Oral 920 800 480 Output: Void Amount 2250 1200 585 Other: Meal snack Percent of Meal Consumed 100% Feeding Ability Independent Urine Appearance Clear Clear Clear Urine Color Pale Pale Pale Urine Odor Normal Exam: Doing good. AVSS. No changes MOE. Left foot wound is clean. Granulating well. A/P Narrative A/P Narrative: Assessment: Satisfactory progress with wound care. Ready for skin grafting. Rapid Covid was +. SARS COVID 2 was -. Plan: Will check with OR / Anesthesia in AM. Consider OR debridement and skin graft. AWAIT anesthesia / OR input. Time Spent With Patient Time: Total time spent is greater than 50% in coordination of care (as documented) at patient's floor/unit and/or counseling patient: Total time spent with greater than 50% in coordination of care (as documented) at patient's floor/unit and/or counseling patient:: 15 - 24 minutes
[2020-07-15] MEDS: INSULIN LISPRO 1 UNIT/0.01 ML UNIT SQ SCH ×7 (09:26→20:20)
[2020-07-15] MEDS: DOCUSATE SODIUM 100 MG CAPSULE PO SCH ×2 (09:27→20:19)
[2020-07-15] MEDS: cefTRIAXone 2 GM in DEXTROSE 5% IN WATER 50 ML IV SCH (09:27)
[2020-07-15] MEDS: LACTOBACILLUS 1 CAPSULE PO SCH ×2 (09:27→20:19)
[2020-07-15] MEDS: HEPARIN 5,000 UNIT/ML VIAL SQ SCH ×2 (09:27→20:20)
[2020-07-15] MEDS: GENTAMICIN SULFATE 40 MG, CLINDAMYCIN 300 MG, BACITRACIN 25,000 UNIT in SODIUM CHLORIDE... IRR SCH ×3 (09:27→20:21)
--- NOTE | 2020-07-15 16:24 | Internal Med Progress Note ---
SUBJECTIVE Subjective Patient information: Note initiated : 07/15/20 at 4:23 pm Service Date, if different from initiated Date: [] Patient: Robson Landaverde 59 y/o M admitted on 07/11/20 for Lt Foot Wound. Chief Complaint: [] Interval history: Mr. Landaverde is a 59 year old M Zentz to the ED with a red swollen oozing foot left. Patient states last he stepped on a nail which did not penetrate his skin but scraped his foot up on the medial side of his left foot. Since that time is foot has become red swollen and started oozing purulent fluid. Start have skin breakdown as well. Also becoming uncomfortable. He did see ED several days ago was put on oral antibiotics and to get some IV a ntibiotics initially. However today when he went to wound care he was sent to the ED as it did not appear to be improving. He denies fever chills. Has history of diabetes. Has a history of hypertension but his lisinopril was stopped few months ago because he had some low blood pressures with worsening creatinine. His blood pressure now off any medication is between 114 and 190 systolic. 07/12 Patient doing well this morning. No overnight events or new complaints. Rapid COVID test came back positive this morning, however, suspect false positive. He was exposed over a month ago and was tested twice with negative results. He has not had any symptoms. 07/13 Patient doing well and feeling well. He had bedside I&D by Dr. Tsang yesterday. Awaiting final wound cultures. 07/14 Slept well . no new complaints. Awaiting final wound culture results with sensitivities. 07/15 Patient feels fine and does not have any new complaints. Sensitivities pending Wound care Dr. Tsang will probably do debridement and skin graft for him today . Review of Systems: denies headache/fever/chills/nausea/vomiting/chest or abdominal pain/cough/dyspnea/diarrhea. Otherwise see above. Constitutional Vitals: Vital Signs Temp Pulse Resp BP Pulse Ox 98.4 F 84 18 160/90 97 07/15/20 15:56 07/15/20 15:56 07/15/20 15:56 07/15/20 15:56 07/15/20 15:56 Period Temp Pulse Resp BP Sys/Razo Pulse Ox Last 24 Hr 96.8 F-98.4 F 84-95 18-20 138-167/82-102 93-98 Intake and Output 07/15/20 07/15/20 07/15/20 05:59 13:59 21:59 Intake Total 800 1880 480 Output Total 1200 1680 650 Balance -400 200 -170 Intake & Output: Intake & Output 07/15/20 07/15/20 07/15/20 05:59 13:59 21:59 Intake Total 800 1880 480 Output Total 1200 1680 650 Balance -400 200 -170 Intake: Oral 800 1880 480 Output: Void Amount 1200 1680 650 Other: Meal Lunch Breakfast Percent of Meal Consumed 100% 100% Feeding Ability Independent Independent Urine Appearance Clear Clear Clear Urine Color Pale Pale Pale Urine Odor Normal Normal # Bowel Movements 1 Additional findings Additional findings: General: Alert, Awake, No acute Distress, obese Eyes/N/T: EOMI, Head/Neck: neck supple, CV: RRR, No murmurs, Pulm: Clear b/l, no wheezing/rhonchi/rales Abd: soft, nontender, +BS x4 Ext: no clubbing/cyanosis/edema. ulcer over the left first metatarsophalangeal joint area, covered with purulent secretion. Neuro: Alert, no focal deficits, moves all extremities, sensations b/l decreased and chronic skin: warm/dry OBJ DATA Labs CBC & Chem 7: 07/13/20 05:46 07/13/20 05:46 Labs: Abnormal Lab Results 07/13/20 07/13/20 05:46 05:46 RBC 4.07 L Hgb 13.1 L Hct 38.8 L [place] # (Auto) 1.16 H Glucose 204 H C-Reactive Protein 6.3 H Meds: Medications Acetaminophen (Tylenol) 650 mg PO Q6HP PRN PRN Reason: PAIN/FEVER > 101 Last Admin: 07/13/20 11:58 Dose: 650 mg Documented by: Hydrocodone Bitart/Acetaminophen ([place] 5/325mg) 1 tab PO Q4HP PRN; Protocol PRN Reason: Per Pain Protocol Last Admin: 07/15/20 11:57 Dose: 1 tab Documented by: Albuterol/Ipratropium (Duoneb) 3 ml NEB Q4HP PRN PRN Reason: Shortness Of Breath Amlodipine Besylate (Norvasc) 2.5 mg PO DAILY [facility] Diagnostic Test (Pha) (Accu-Chek) 1 each FS ACHS [facility] Last Admin: 07/15/20 11:56 Dose: 1 each Documented by: Docusate Sodium (Colace) 100 mg PO BID [facility] Last Admin: 07/15/20 09:27 Dose: 100 mg Documented by: Heparin Sodium (Porcine) (Heparin) 5,000 unit SQ Q12 [facility] Last Admin: 07/15/20 09:27 Dose: 5,000 unit Documented by: Potassium Chloride 40 meq/ (Dextrose) 520 mls @ 130 mls/hr IV UD PRN PRN Reason: Potassium < 3 Magnesium Sulfate (Magnesium Sulfate) 2 gm in 50 mls @ 50 mls/hr IV UD PRN PRN Reason: Magnesium </= 1.6 Ceftriaxone Sodium 2 gm/ (Dextrose) 50 mls @ 100 mls/hr IV DAILY [facility]; Protocol Last Admin: 07/15/20 09:27 Dose: 100 mls/hr Documented by: Gentamicin Sulfate 40 mg/Clindamycin Phosphate 300 mg/Bacitracin 25,000 unit/ Sodium Chloride 503 mls @ 0 mls/hr IRR TID [facility] Last Admin: 07/15/20 14:56 Dose: 40 mls/hr Documented by: Insulin Glargine (Lantus) 50 unit SQ HS [facility] Last Admin: 07/14/20 21:29 Dose: 50 units Documented by: Insulin Human Lispro (Humalog) 30 unit SQ TIDAC [facility] Last Admin: 07/15/20 11:56 Dose: 30 units Documented by: Insulin Human Lispro (Humalog) 0 unit SQ ACHS [facility]; Protocol Last Admin: 07/15/20 11:56 Dose: 3 units Documented by: Labetalol HCl (Trandate) 0 mg IV Q2HP PRN PRN Reason: Hypertension Last Admin: 07/14/20 22:01 Dose: 5 mg Documented by: Lactobacillus Rhamnosus (Culturelle) 1 cap PO BID [facility] Last Admin: 07/15/20 09:27 Dose: 1 cap Documented by: Metoclopramide HCl (Reglan) 10 mg IV Q6HP PRN PRN Reason: Nausea And Vomiting Metoprolol Succinate (Toprol Xl) 6.25 mg PO DAILY [facility] Ondansetron HCl (Zofran) 4 mg IV Q4HP PRN PRN Reason: Nausea And Vomiting Polyethylene Glycol (Miralax) 17 gm PO DAILYP PRN PRN Reason: Constipation Potassium Chloride (Kdur) 40 meq PO UD PRN PRN Reason: Potssium is 3-3.5 Potassium Chloride (Kdur) 40 meq PO UD PRN PRN Reason: Potassium < 3 Senna (Senokot) 2 tab PO DAILYP PRN PRN Reason: Constipation Sodium Chloride (Saline Flush) 10 ml IV Q8 LEIDA Last Admin: 07/15/20 14:56 Dose: Not Given Documented by: A/P Narrative A/P Narrative: *LLE/foot cellulitis: failed outpt therapy. s/p I&D (07/12) -Wound cx with Strep pygenes and Staphyl aureus, sensitivities pending -CT with foot cellulitis and lower leg cellulitis, no abscess or osteomyelitis noted -leukocytosis resolved, crp improving *DM: A1c 6.9 *HTN: Was taken off lisinopril several months ago for low blood pressure and elevated creatinine. *Obesity: *rapid COVID positive but Send Out Negative -?false positive as he was exposed over a month ago & tested x2 w/negative results. He has not had any symptoms. 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 P: -cont Rocephin/Clinda - deescalate based on cultures -awaiting final wound and blood cx pending -Dr. Tsang/wound care -basal and SSI -added metoprolol and amlodipine -ppx: heparin Time Spent With Patient Time: Total time spent is greater than 50% in coordination of care (as documented) at patient's floor/unit and/or counseling patient: QUALITY Stroke Symptom Onset Unknown: No VTE Deep Vein Thrombosis/Pulmonary Embolism Present on Admission: No
[2020-07-15] MEDS: INSULIN GLARGINE, HUMAN 1 UNIT/0.01 ML SQ SCH (20:19)
[2020-07-16] MEDS: HYDROcodone/APAP 5/325MG TABLET PO PRN ×3 (04:38→18:01)
[2020-07-16] MEDS: 0.9 % SODIUM CHLORIDE 10 ML SYRINGE IV SCH ×2 (04:38→13:53)
[2020-07-16 06:16] LABS: Basophils # (Auto) 0.11 K/mcL (0.00-0.30); Basophils % (Auto) 1.3 % (0.0-2.0); Eosinophils # (Auto) 0.33 K/mcL (0.00-0.70); Eosinophils % (Auto) 3.9 % (0.0-7.0); Granulocytes % (Auto) 66.6 % (38.0-78.0); Hematocrit 39.8 % (40.1-51.0); Hemoglobin 13.3 g/dL (13.7-17.5); Lymphocytes # (Auto) 1.41 K/mcL (1.50-4.80); Lymphocytes % (Auto) 16.7 % (15.5-49.0); Mean Cell Volume 95.7 fL (80.0-100.0); Mean Corpuscular HGB Conc 33.4 g/dL (31.0-36.0); Mean Platelet Volume 9.7 fL (7.4-10.4); Monocytes # (Auto) 0.97 K/mcL (0.10-0.90); Monocytes % (Auto) 11.5 % (1.0-12.0); Platelet Count 385 K/mcL (140-440); RBC 4.16 M/mcL (4.63-6.08); Red Cell Distribution Width 12.7 % (11.5-14.5); WBC 8.5 K/mcL (4.50-11.00)
[2020-07-16 06:28] LABS: ALT/SGPT 46 U/l (0-40); AST/SGOT 30 U/l (0-37); Albumin 2.9 gm/dL (3.2-5.2); Albumin/Globulin Ratio 0.7 (1.0-2.3); Alkaline Phosphatase 84 U/L (39-117); Bilirubin,Total 0.2 mg/dL (0.0-1.0); Blood Urea Nitrogen 13 mg/dl (6-20); Carbon Dioxide 21 mmol/L (22-30); Chloride 100 mmol/L (96-108); Globulin 4.3 gm/dL (2.2-3.7); Glomerular Filtration Rate 98; Glucose 264 mg/dL (70-105)
[2020-07-16] MEDS ORDERED: METOPROLOL SUCCINATE 25 MG TAB.XL.24H PO SCH (09:00)
[2020-07-16] MEDS ORDERED: amLODIPine 5 MG TABLET PO SCH (09:00)
[2020-07-16] MEDS: HEPARIN 5,000 UNIT/ML VIAL SQ SCH (09:28)
[2020-07-16] MEDS: DOCUSATE SODIUM 100 MG CAPSULE PO SCH (09:28)
[2020-07-16] MEDS: INSULIN LISPRO 1 UNIT/0.01 ML UNIT SQ SCH ×8 (09:28→18:01)
[2020-07-16] MEDS: LACTOBACILLUS 1 CAPSULE PO SCH (09:28)
[2020-07-16] MEDS: cefTRIAXone 2 GM in DEXTROSE 5% IN WATER 50 ML IV SCH (09:29)
[2020-07-16] MEDS: GENTAMICIN SULFATE 40 MG, CLINDAMYCIN 300 MG, BACITRACIN 25,000 UNIT in SODIUM CHLORIDE... IRR SCH ×2 (09:30→13:53)
[2020-07-16 12:22] LABS: Creatinine,Urine 111.1 mg/dL
[2020-07-16 12:40] LABS: Microalbum/Creatinine Ratio,Ur 436.5 mg/gm (0.5-30.0); Microalbumin,Urine 48.5 mg/dl
[2020-07-16 12:51] LABS: Appearance,Urine CLEAR; Bacteria,Urine 0 /hpf (0); Bilirubin,Urine NEG (NEG); Color,Urine YELLOW; Culture Indicated,Urine NO; Glucose,Urine (UA) NEGATIVE (NEG); Ketones,Urine NEG (NEG); Leukocyte Esterase,Urine NEG /uL (NEG); Mucus,Urine FEW /hpf (0); Nitrate,Urine NEG (NEG); Protein,Urine 100 mg/dL (NEG); Specific Gravity,Urine 1.016 (1.000-1.035); Urine Blood NEG mg/dL (<0.03); Urine RBC 1 /hpf (0-1); Urine Squamous Epithelial Cell 0 /hpf (0-4); Urine WBC < 1 /hpf (0-4); Urobilinogen,Urine NEG (NEG)
--- NOTE | 2020-07-16 13:31 | General Surgery Progress Note ---
SUBJECTIVE Subjective Patient information: Note initiated : 07/16/20 at 1:23 pm Service Date, if different from initiated Date: [] Patient: Robson Landaverde 59 y/o M admitted on 07/11/20 for Lt Foot Wound. Chief Complaint: [] Additional PMFSH (Level 3 Only): Patient seen on rounds with Delma NAM In Patient wound care nurse. He had an uneventful night. Wound examined this morning. Constitutional Vitals: Vital Signs Temp Pulse Resp BP Pulse Ox 97.8 F 85 18 144/88 95 07/16/20 12:00 07/16/20 12:00 07/16/20 12:00 07/16/20 12:00 07/16/20 12:00 Period Temp Pulse Resp BP Sys/Razo Pulse Ox Last 24 Hr 97 F-98.4 F 78-85 18- 140-160/80-98 94-97 Intake and Output 07/15/20 07/16/20 07/16/20 21:59 05:59 13:59 Intake Total 2080 730 1520 Output Total 2425 1999 1050 Balance -345 -1270 470 Weight 254 lb 8 oz Intake & Output: Intake & Output 07/15/20 07/16/20 07/16/20 21:59 05:59 13:59 Intake Total 2080 730 1520 Output Total 2425 1999 1050 Balance -345 -1270 470 Weight 254 lb 8 oz Intake: Oral 2080 730 1520 Output: Void Amount 2425 1999 1050 Other: Meal Breakfast watermelon fruit Breakfast Percent of Meal Consumed 100% 100% 100% Feeding Ability Independent Independent Independent Urine Appearance Clear Clear Clear Urine Color Pale Pale Pale Urine Odor Normal Normal Normal # Bowel Movements 1 Exam: AVSS. No changes MOE. L/E : Wound surface is granular and periwound skin and sub cutaneous texture is at base line. NO odor, NO purulence, NO warmth. NO drainage. Covid Positive ( Rapid Test ). Anesthesia / OR do NOT want to schedule this case as it is non emergent. A/P Narrative A/P Narrative: Assessment: Responded well to bedside debridement and ongoing local wound care. NEEDS surgical debridement in OR and [facility] ( Skin grafting ) OR / Anesthesia do NOT want any NON EMERGENT Covid surgery to be scheduled. Plan: O K to discharge home ( Self Quarantine per patient ) Ongoing wound care to continue ( Clean with Vashe or NS and topical GCB BID ) PO antibiotics per Hospitalist based on c/s report. F/U at wound care center in one week. ( It will be 10 days since + Covid test by then ) Time Spent With Patient Time: Total time spent is greater than 50% in coordination of care (as documented) at patient's floor/unit and/or counseling patient: Total time spent with greater than 50% in coordination of care (as documented) at patient's floor/unit and/or counseling patient:: 15 - 24 minutes
--- NOTE | 2020-07-16 14:09 | Discharge Summary ---
Discharge Provider Provider Patient information: Note initiated : 07/16/20 at 1:54 pm Service Date, if different from initiated Date: [] Patient: Robson Landaverde 59 y/o M admitted on 07/11/20 for Lt Foot Wound. Chief Complaint: [] Date of admission: 07/11/20 17:57 Discharge date: 07/16/20 Primary care physician: ALEX Phoenix Consults: 07/11/20 16:07 Consult to Physician [CONS] Stat Comment: Consulting Provider: Kingsley Ware Reason For Exam: Physician to Consult 07/11/20 19:32 Consult to Physician [CONS] Urgent Comment: Consulting Provider: Justo Tsang Reason For Exam: Physician to Consult 07/16/20 08:25 Consult to Physician [CONS] Routine Comment: Consulting Provider: Timmy Palmer Reason For Exam: Physician to Consult Discharge Meds Discharge Medications Home Medications insulin aspart U-100 30 unit SQ TID 01/21/18 [History Confirmed 07/11/20 Last Taken 07/11/20 07:30] insulin detemir U-100 100 unit/mL subcutaneous solution 50 unit SUB-Q HS ml 08/03/19 [History Confirmed 07/11/20 Last Taken 07/11/20 07:30] metformin 500 mg tablet 1,000 mg PO BIDCC 04/05/20 [History Confirmed 07/11/20 Last Taken 07/11/20 07:30] cephalexin [Keflex] 500 mg PO QID #40 cap 07/09/20 [Rx Confirmed 07/11/20 Last Taken 07/11/20 12:00] Accu-Chek 1 ea FS ACHS 90 Days 07/16/20 [Rx Last Taken Unknown] Lactobacillus rhamnosus GG [Culturelle] 1 cap PO BID #30 cap 07/16/20 [Rx Last Taken Unknown] amlodipine 2.5 mg PO DAILY 30 Days #30 tab 07/16/20 [Rx Last Taken Unknown] docusate sodium 100 mg PO BID #30 cap 07/16/20 [Rx Last Taken Unknown] doxycycline hyclate 100 mg PO BID #20 cap 07/16/20 [Rx Last Taken Unknown] hydrocodone-acetaminophen 1 tab PO Q8HP PRN 3 Days #9 tab 07/16/20 [Rx Last Taken Unknown] metoprolol succinate 6.25 mg PO DAILY #30 tab 07/16/20 [Rx Last Taken Unknown] polyethylene glycol 3350 [Miralax] 17 gm PO DAILYP PRN #10 ea 07/16/20 [Rx Last Taken Unknown] COURSE Hospital Course Hospital course: *LLE/foot cellulitis: failed outpt therapy. s/p I&D (07/12) -Wound cx with Strep pygenes and Staphyl aureus, sensitivities pending -CT with foot cellulitis and lower leg cellulitis, no abscess or osteomyelitis noted -leukocytosis resolved, crp improving -as per wound care Dr. Tsnag, pt needs surgical debridement in OR and STSG ( Skin grafting) but OR / Anesthesia do NOT want any NON EMERGENT Covid surgery to be scheduled. OK to discharge home(Self Quarantine per patient), Ongoing wound care to continue ( Clean with Vashe or NS and topical GCB BID), F/U at wound care center in one week. ( It will be 10 days since + Covid test by then ). Discussed with ID Dr. Palmer, discontinued ceftriaxone adn clindamycin. He needs doxycycline 100mg po bid (avoid milk and supplements such as mag) and keflex 500mg po Qid for 7-10days. *DM: A1c 6.9 -basal and SSI *HTN: Was taken off lisinopril several months ago for low blood pressure and elevated creatinine. -added metoprolol and amlodipine *Obesity: *rapid COVID positive but Send Out Negative -?false positive as he was exposed over a month ago & tested x2 w/negative results. He has not had any symptoms. 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 Interval history: [facility] 59 [facility] oozing foot left. Patient states last he stepped on a nail which did not penetrate his skin but scraped his foot up on the medial side of his left foot. Since that time is foot has become red swollen and started oozing purulent fluid. Start have skin breakdown as well. Also becoming uncomfortable. He did see ED several days ago was put on oral antibiotics and to get some IV antibiotics initially. However today when he went to wound care he was sent to the ED as it did not appear to be improving. He denies fever chills. Has history of diabetes. Has a history of hypertension but his lisinopril was stopped few months ago because he had some low blood pressures with worsening creatinine. His blood pressure now off any medication is between 114 and 190 systolic. 07/12 Patient doing well this morning. No overnight events or new complaints. Rapid COVID test came back positive this morning, however, suspect false positive. He was exposed over a month ago and was tested twice with negative results. He has not had any symptoms. 07/13 Patient doing well and feeling well. He had bedside I&D by Dr. Tsang yesterday. Awaiting final wound cultures. 07/14 Slept well . no new complaints. Awaiting final wound culture results with sensitivities. 07/15 Patient feels fine and does not have any new complaints. Sensitivities pending Wound care Dr. Tsang will probably do debridement and skin graft for him today . 07/[address] Tsang cleared to discharge him to home today. Discussed with ID Dr. Palmer who suggested to discontinue ceftriaxone and clindamycin. He will be discharged on oral doxycycline 100 mg oral p.o. twice daily and Keflex 500 mg p.o. 4 times daily for 7 to 10 days. Okay to go home by PT. Patient was COVID 19+. Discussed with dye house helper who is okay to discharge this patient to a hotel. Patient is to be quarantined for at least 20 days from the day he is asymptomatic. Patient is to follow with PCP in 3 days and wound care Dr. Lr nde on 07/23/2020. His antibiotic needs to be adjusted based on sensitivities. further surgical treatment has been setup for him. He needs to do more exercise to strength himself and prevent from more thrombotic events. Call PCP for medical issues. Discharge diagnosis: LLE/foot cellulitis Time Spent with Patient Time attestation: Total time spent providing and/or coordinating discharge services: EXAM Constitutional Vitals: Temp Pulse Resp BP Pulse Ox 97.8 F 85 18 144/88 95 07/16/20 12:00 07/16/20 12:00 07/16/20 12:00 07/16/20 12:07/16/20 12:00 Additional findings Additional findings: General: Alert, Awake, No acute Distress, obese Eyes/N/T: EOMI, Head/Neck: neck supple, CV: RRR, No murmurs, Pulm: Clear b/l, no wheezing/rhonchi/rales Abd: soft, nontender, +BS x4 Ext: no clubbing/cyanosis/edema. ulcer over the left first metatarsophalangeal joint area, covered with purulent secretion. Neuro: Alert, no focal deficits, moves all extremities, sensations b/l decreased and chronic skin: warm/dry Discharge Data Data Completed and Pending Labs on day of discharge: Labs from last 24 hours 07/16/20 07/16/20 07/16/20 10:30 10:30 10:30 WBC RBC Hgb Hct MCV MCH MCHC RDW Plt Count MPV Gran % Lymph % (Auto) [place] % (Auto) Eos % (Auto) Baso % (Auto) Gran # Lymph # (Auto) [place] # (Auto) Eos # (Auto) Baso # (Auto) Sodium Potassium Chloride Carbon Dioxide Anion Gap BUN Creatinine GFR Calculation Glucose Calcium Total Bilirubin AST ALT Alkaline Phosphatase Total Protein Albumin Globulin Albumin/Globulin Ratio Urine Color Yellow Urine Appearance Clear Urine pH 6.0 Ur Specific [place] 1.016 Urine Protein 100 A Urine Glucose (UA) Negative Urine Ketones Neg Urine Occult Blood Neg Urine Nitrate Neg Urine Bilirubin Neg Urine Urobilinogen Neg Ur Leukocyte Esterase Neg Urine RBC 1 Urine WBC < 1 Ur Squamous Epith Cells 0 Urine Bacteria 0 Urine Mucus Few Ur Culture Indicated? No U Random Total Protein 92 Ur Random Sodium 84 Urine Creatinine 111.1 Urine Microalbumin 48.5 Microalb/Creat Ratio 436.5 H Miscellaneous Test 07/16/20 07/16/20 07/16/20 10:14 04:59 04:59 WBC 8.5 RBC 4.16 L Hgb 13.3 L Hct 39.8 L MCV 95.7 MCH 32.0 MCHC 33.4 RDW 12.7 Plt Count 385 MPV 9.7 Gran % 66.6 Lymph % (Auto) 16.7 [place] % (Auto) 11.5 Eos % (Auto) 3.9 Baso % (Auto) 1.3 Gran # 5.63 Lymph # (Auto) 1.41 L [place] # (Auto) 0.97 H Eos # (Auto) 0.33 Baso # (Auto) 0.11 Sodium 132 L Potassium 4.2 Chloride 100 Carbon Dioxide 21 L Anion Gap 11.0 BUN 13 Creatinine 0.8 GFR Calculation 98 Glucose 264 H Calcium 8.0 L Total Bilirubin 0.2 AST 30 ALT 46 H Alkaline Phosphatase 84 Total Protein 7.2 Albumin 2.9 L Globulin 4.3 H Albumin/Globulin Ratio 0.7 L Urine Color Urine Appearance Urine pH Ur Specific [place] Urine Protein Urine Glucose (UA) Urine Ketones Urine Occult Blood Urine Nitrate Urine Bilirubin Urine Urobilinogen Ur Leukocyte Esterase Urine RBC Urine WBC Ur Squamous Epith Cells Urine Bacteria Urine Mucus Ur Culture Indicated? U Random Total Protein Ur Random Sodium Urine Creatinine Urine Microalbumin Microalb/Creat Ratio Miscellaneous Test Cancelled Preliminary micro results at discharge 07/12/20 12:15 Tissue Culture - Preliminary Foot - Left Strep pyogenes (grp a) Staphylococcus aureus Coagulase negative staph 07/11/20 14:42 Blood Culture - Preliminary Blood 07/11/20 14:59 Blood Culture - Preliminary Blood Discharge Plan Patient/Caregiver Discharge Instructions Activity: increase activity as tolerated Diet: Consistent Carbohydrate Instructions: Diabetes Mellitus Type 2 in Adults, Cook Relief (GEN) Prescriptions: New Accu-Chek 1 ea FS ACHS 90 Days RF: 0 hydrocodone-acetaminophen 5-325 mg Tablet 1 tab PO Q8HP PRN (Reason: Per Pain Protocol) 3 Days Qty: 9 RF: 0 amlodipine 5 mg Tablet 2.5 mg PO DAILY 30 Days Qty: 30 RF: 0 docusate sodium 100 mg Capsule 100 mg PO BID Qty: 30 RF: 0 polyethylene glycol 3350 [Miralax] 17 gram Powder In Packet 17 gm PO DAILYP PRN (Reason: Constipation) Qty: 10 RF: 0 metoprolol succinate 25 mg Tablet Extended Release 24 Hr 6.25 mg PO DAILY Qty: 30 RF: 0 Culturelle 15 billion cell Capsule, Sprinkle 1 cap PO BID Qty: 30 RF: 0 doxycycline hyclate 100 mg capsule 100 mg PO BID Qty: 20 RF: 0 Continued insulin aspart U-100 100 UNIT/ML solution 30 unit SQ TID RF: 0 insulin detemir U-100 100 unit/mL solution 50 unit SUB-Q HS RF: 0 metformin 500 mg tablet 1,000 mg PO BIDCC RF: 0 cephalexin [Keflex] 500 mg capsule 500 mg PO QID Qty: 40 RF: 0 Other Ambulatory Orders: Complete Blood Count (Routine) Timeframe: 3 Days Facility: [facility] - Location: Laboratory Ordered By: Himanshu Smith Comprehensive Metabolic Panel (Routine) Timeframe: 3 Days Facility: [facility] - Location: Laboratory Ordered By: Himanshu Smith Wound Care Instructions (CONT) Location: None Selected Ordered By: Justo Tsang Follow Up Plan Follow up with: Ovi Burgos ARNP [Primary Care Provider] - Justo Tsang MD [Physician] - 07/23/20 Unknown [Outside] (PCP in 3 days and ID in one week or sooner) Patient Disposition: Home, Self-Care Rehab Potential: Fair I certify that the patient requires SNF services: No Discharge Orders: Discharge Order (Routine); Ordered 07/16/20 Ordered By: Himanshu Smith QUALITY VTE Deep Vein Thrombosis/Pulmonary Embolism Present on Admission: No
== END 2020-07-16 18:32 | disposition home or self-care (01) | DRG 602 ==
LOC: ED 14:11 → SUATTDRO 17:57 → MEDSUR 17:57
PROVIDERS: ADMIT Internal Medicine; ATTEND Internal Medicine Infectious Disease